=== PATIENT | male | born 1935 | race Caucasian/White ===

== ENCOUNTER → 2016-06-10 | Outpatient (CLI) | payer MEDICARE, OTHER ==
[~2016-06-10] VITALS: Ht 180.3 cm; Wt 74.8 kg
[~2016-06-10] MED LIST: ACET-2267 PO; ACET600C PO; ALLP100T PO; ALPR.25T PO; AMLO10TA82 PO; ASP81TEC PO; ASPI-808 PO; ATR20T PO; CHOL500049 PO; CIPR500T78 PO; CPR500T PO; CURCUMIN PO; DOCU-143 PO; DPAS20025 PO; HALO1TAB PO; HYDR1TAB8 OP; HYDR200T46 PO; HYOS0.1216 PO; IBUP-30 PO; L.AC1CAP6 PO; LEVO1CAP11 PO; MAGN400O7 PO; METHYLFOLATE PO; METR500T21 PO; NITR-65 PO; PHEN200T27 PO; POLY17PO6 PO; RT-ALBUINH IH; TERA5CAP10 PO; THIO200T PO; TIOT18CA IH; TOLT4CAP13 PO; VIT D3 PO; cefTRIAXone 1 GM/NS 50 ML IVPB IV ONE
--- OUTSIDE RECORDS SUMMARY | 2016-06-10 09:53 | XMS REPORT | Continuity of Care Document ---
Author Author [facility] Organization [facility] Address Unknown Phone Unavailable Care Team Providers Care Die Stamping Press Operator Name Role Phone Chriss Patricio PCP [phone] Source Comments Some departments are not documenting in the electronic medical record. If you do not see the information that you expected, contact Release of Information in the Health Information Management department at [phone] for further assistance in locating additional records.[facility] Active Allergies and Adverse Reactions No Known Allergies Current Medications Prescription Sig. Disp. Refills Start End Date Status Date donepezil (ARICEPT) 10 mg Take 10 mg by mouth at Active tablet bedtime daily. amLODIPine (NORVASC) 10 Take 10 mg by mouth Active mg tablet daily. allopurinol (ZYLOPRIM) Take 100 mg by mouth Active 100 mg tablet daily. Take with food. terazosin (HYTRIN) 5 mg Take 5 mg by mouth at Active capsule bedtime daily. tolterodine LA(+) (DETROL Take 4 mg by mouth daily. Active LA) 4 mg capsule aspirin 325 mg tablet Take 325 mg by mouth Active daily. Take with food. 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 Most Recent Encounters Date Type Specialty Providers Description 04/20/2016 Telephone Neurology Rah Reynaga MD General Question Social History Tobacco Use Types Packs/Day Years Used Date Former Smoker Cigarettes 40 Smokeless Tobacco: Never Used Alcohol Use Drinks/Week oz/Week Comments No Last Filed Vital Signs Vital Sign Reading Time Taken Blood Pressure 120/77 12/31/2015 9:24 AM CDT Pulse 69 12/31/2015 9:24 AM CDT Temperature - - Respiratory Rate - - Height 1.803 m (5' 11") 12/31/2015 9:24 AM CDT Weight 85.73 kg (189 lb) 12/31/2015 9:24 AM CDT Body Mass Index 26.37 12/31/2015 9:24 AM CDT Oxygen Saturation - - Plan of Care Date Type Specialty Providers Description 07/21/2016 Appointment Neurology Chuck Correa MD [address] [facility] [address] [place] [address] [phone] (Fax) Health Maintenance Due Date Last Done Comments Physical (Comprehensive) 09/26/1942 Exam Pertussis Vaccine 09/26/1947 Tetanus Vaccine 1952 Shingles Vaccine 1996 Prevnar/Pneumovax (#1) 2001 Influenza Vaccine 01/30/2016 Results from Last 3 Months Not on file
[2016-06-10 10:41] VITALS: BP_SYST 110; BP_SYST 128; BP_DIAS 60; BP_DIAS 68
[2016-06-10 10:42] LABS: MEAN PLATELET VOLUME 10.3 FL (7.4-10.4); RED BLOOD COUNT 4.34 10^6/uL (4.35-5.85); RED CELL DISTRIBUTION WIDTH 13.7 % (10.0-14.5); WHITE BLOOD COUNT 6.6 10^3/uL (4.3-11.0)
[2016-06-10 11:06] LABS: ALBUMIN 3.5 G/DL (3.2-4.5); BILIRUBIN,TOTAL 0.8 MG/DL (0.1-1.0); CREATININE SERUM 1.31 MG/DL (0.60-1.30); POTASSIUM 3.8 MMOL/L (3.6-5.0); TOTAL PROTEIN 6.4 G/DL (6.4-8.2)
--- NOTE | 2016-06-10 11:22 | Diagnostic Imaging Report ---
EXAMINATION: Portable upright radiograph of the chest. INDICATION: PICC line placement. FINDINGS: There is a right PICC line placed with the tip at the mid SVC level. The heart size is normal. No effusion or pneumothorax. The mediastinum and lilian appear unremarkable. IMPRESSION: There is a 20% left pneumothorax after lung biopsy. Post biopsy changes are seen in the mid left lung. The right lung is clear. The heart size is normal. No significant effusion. IMPRESSION: 20% left sided pneumothorax. This is comparable to the pneumothorax seen after biopsy. Will continue to monitor clinically and with followup chest x-ray. Dictated by: Dictated on workstation # [id number]
== END ==
LOC: SDC 09:48
PROVIDERS: ATTEND Nurse Practitioner Family
DX: A69.20 Lyme disease, unspecified (principal); Z45.2 Encounter for adjustment and management of vascular access device
CPT/HCPCS: 36415; 36569; 71010; 76937; 80053; 85027; 96365

== ENCOUNTER → 2016-06-16 | Outpatient (CLI) | payer MEDICARE, OTHER ==
[~2016-06-16] MED LIST changes: -cefTRIAXone 1 GM/NS 50 ML IVPB IV ONE
--- OUTSIDE RECORDS SUMMARY | 2016-06-16 13:12 | XMS REPORT | Continuity of Care Document ---
Author Author [facility] Organization [facility] Address Unknown Phone Unavailable Care Team Providers Care Business Analytics Manager Name Role Phone Chriss Patricio PCP [phone] Source Comments Some departments are not documenting in the electronic medical record. 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
[2016-06-16 13:14] LABS: BASOPHILS % (AUTO) 1 % (0-10); EOSINOPHILS # (AUTO) 0.2 10^3/uL (0.0-0.3); EOSINOPHILS % (AUTO) 3 % (0-10); LYMPHOCYTES # (AUTO) 0.9 X 10^3 (1.0-4.0); LYMPHOCYTES % (AUTO) 14 % (12-44); MEAN CORPUSCULAR HEMOGLOBIN 31 PG (25-34); MEAN CORPUSCULAR HGB CONC 34 G/DL (32-36); MEAN CORPUSCULAR VOLUME 90 FL (80-99); MEAN PLATELET VOLUME 10.8 FL (7.4-10.4); MONOCYTES # (AUTO) 0.4 X 10^3 (0.0-1.0); MONOCYTES % (AUTO) 7 % (0-12); NEUTROPHILS # (AUTO) 4.6 X 10^3 (1.8-7.8); NEUTROPHILS % (AUTO) 75 % (42-75); PLATELET COUNT 134 10^3/uL (130-400); RED BLOOD COUNT 4.35 10^6/uL (4.35-5.85); RED CELL DISTRIBUTION WIDTH 13.9 % (10.0-14.5); WHITE BLOOD COUNT 6.2 10^3/uL (4.3-11.0)
[2016-06-16 13:31] LABS: ALBUMIN 3.5 G/DL (3.2-4.5); BILIRUBIN,TOTAL 0.5 MG/DL (0.1-1.0); CALCIUM 8.8 MG/DL (8.5-10.1); CREATININE SERUM 1.28 MG/DL (0.60-1.30); POTASSIUM 3.9 MMOL/L (3.6-5.0)
== END ==
LOC: HH 13:09
PROVIDERS: ATTEND Internal Medicine
DX: G12.21 Amyotrophic lateral sclerosis (principal)
CPT/HCPCS: 80053; 85025

== ENCOUNTER → 2016-06-22 | Outpatient (CLI) | payer MEDICARE, OTHER ==
[2016-06-22 15:31] LABS: BASOPHILS % (AUTO) 1 % (0-10); EOSINOPHILS # (AUTO) 0.3 10^3/uL (0.0-0.3); EOSINOPHILS % (AUTO) 4 % (0-10); LYMPHOCYTES # (AUTO) 1.2 X 10^3 (1.0-4.0); LYMPHOCYTES % (AUTO) 17 % (12-44); MEAN CORPUSCULAR HEMOGLOBIN 31 PG (25-34); MEAN CORPUSCULAR HGB CONC 34 G/DL (32-36); MEAN CORPUSCULAR VOLUME 91 FL (80-99); MEAN PLATELET VOLUME 11.5 FL (7.4-10.4); MONOCYTES # (AUTO) 0.7 X 10^3 (0.0-1.0); MONOCYTES % (AUTO) 11 % (0-12); NEUTROPHILS # (AUTO) 4.6 X 10^3 (1.8-7.8); NEUTROPHILS % (AUTO) 68 % (42-75); PLATELET COUNT 161 10^3/uL (130-400); RED BLOOD COUNT 4.38 10^6/uL (4.35-5.85); RED CELL DISTRIBUTION WIDTH 13.8 % (10.0-14.5); WHITE BLOOD COUNT 6.8 10^3/uL (4.3-11.0)
[2016-06-22 15:48] LABS: ALBUMIN 3.5 G/DL (3.2-4.5); BILIRUBIN,TOTAL 0.4 MG/DL (0.1-1.0); CALCIUM 8.9 MG/DL (8.5-10.1); CREATININE SERUM 1.19 MG/DL (0.60-1.30); POTASSIUM 3.9 MMOL/L (3.6-5.0); TOTAL PROTEIN 6.1 G/DL (6.4-8.2)
--- OUTSIDE RECORDS SUMMARY | 2016-06-23 08:11 | XMS REPORT | Continuity of Care Document ---
Author Author [facility] Organization [facility] Address Unknown Phone Unavailable Care Team Providers Care Hot Air Furnace Installer Repairer Name Role Phone Chriss Patricio PCP [phone] Source Comments Some departments are not documenting in the electronic medical record. 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 [address] [place] [address] [phone] (Fax) Health Maintenance Due Date Last Done Comments Physical (Comprehensive) 09/26/1942 Exam Pertussis Vaccine 09/26/1947 Tetanus Vaccine 1953 Shingles Vaccine 1996 Prevnar/Pneumovax (#1) 2001 Influenza Vaccine 01/30/2016 Results from Last 3 Months Not on file
== END ==
LOC: HH 14:30
PROVIDERS: ATTEND Internal Medicine
DX: G12.21 Amyotrophic lateral sclerosis (principal); A69.20 Lyme disease, unspecified
CPT/HCPCS: 80053; 85025

== ENCOUNTER → 2016-06-23 | Outpatient (CLI) | payer MEDICARE, OTHER ==
--- OUTSIDE RECORDS SUMMARY | 2016-06-25 23:19 | XMS REPORT | Continuity of Care Document ---
Author Author [facility] Organization [facility] Address Unknown Phone Unavailable Care Team Providers Care Coremaker Supervisor Name Role Phone Chriss Patricio PCP [phone] Source Comments Some departments are not documenting in the electronic medical record. 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
[2016-06-26 00:22] LABS: BILIRUBIN,URINE NEGATIVE (NEGATIVE); KETONES,URINE NEGATIVE (NEGATIVE); LEUKOCYTE ESTERASE ,URINE NEGATIVE (NEGATIVE); NITRITE,URINE NEGATIVE (NEGATIVE); PH,URINE 6.5 (5-9); PROTEIN,URINE NEGATIVE (NEGATIVE); UROBILINOGEN,URINE NORMAL (NORMAL)
[2016-06-26 00:23] LABS: SQUAMOUS EPITHELIAL CELL,UR RARE /HPF
== END ==
LOC: HH 04:00
PROVIDERS: ATTEND Internal Medicine
DX: G12.21 Amyotrophic lateral sclerosis (principal); A69.20 Lyme disease, unspecified
CPT/HCPCS: 81000

== ENCOUNTER → 2016-06-29 | Outpatient (CLI) | payer MEDICARE, OTHER ==
--- OUTSIDE RECORDS SUMMARY | 2016-06-29 15:27 | XMS REPORT | Continuity of Care Document ---
Author Author [facility] Organization [facility] Address Unknown Phone Unavailable Care Team Providers Care Clarifier Operator Helper Name Role Phone Chriss Patricio PCP [phone] Source Comments Some departments are not documenting in the electronic medical record. 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
[2016-06-29 15:43] LABS: BASOPHILS % (AUTO) 1 % (0-10); EOSINOPHILS # (AUTO) 0.3 10^3/uL (0.0-0.3); EOSINOPHILS % (AUTO) 4 % (0-10); LYMPHOCYTES % (AUTO) 16 % (12-44); MEAN CORPUSCULAR HEMOGLOBIN 31 PG (25-34); MEAN CORPUSCULAR HGB CONC 34 G/DL (32-36); MEAN CORPUSCULAR VOLUME 91 FL (80-99); MEAN PLATELET VOLUME 11.5 FL (7.4-10.4); MONOCYTES # (AUTO) 0.4 X 10^3 (0.0-1.0); MONOCYTES % (AUTO) 6 % (0-12); NEUTROPHILS # (AUTO) 4.3 X 10^3 (1.8-7.8); NEUTROPHILS % (AUTO) 73 % (42-75); PLATELET COUNT 155 10^3/uL (130-400); RED BLOOD COUNT 4.28 10^6/uL (4.35-5.85); RED CELL DISTRIBUTION WIDTH 14.1 % (10.0-14.5); WHITE BLOOD COUNT 5.9 10^3/uL (4.3-11.0)
[2016-06-29 16:10] LABS: ALBUMIN 3.6 G/DL (3.2-4.5); BILIRUBIN,TOTAL 0.4 MG/DL (0.1-1.0); CALCIUM 8.8 MG/DL (8.5-10.1); CREATININE SERUM 1.24 MG/DL (0.60-1.30); POTASSIUM 3.7 MMOL/L (3.6-5.0); TOTAL PROTEIN 6.2 G/DL (6.4-8.2)
== END ==
LOC: LABNPT 13:30
PROVIDERS: ATTEND Internal Medicine
DX: G12.21 Amyotrophic lateral sclerosis (principal); A69.20 Lyme disease, unspecified
CPT/HCPCS: 80053; 85025

== ENCOUNTER → 2016-07-06 | Outpatient (CLI) | payer MEDICARE, OTHER ==
--- OUTSIDE RECORDS SUMMARY | 2016-07-06 14:06 | XMS REPORT | Continuity of Care Document ---
Author Author [facility] Organization [facility] Address Unknown Phone Unavailable Care Team Providers Care Switchboard Operator Helper Name Role Phone Chriss Patricio PCP [phone] Source Comments Some departments are not documenting in the electronic medical record. 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
[2016-07-06 14:08] LABS: BASOPHILS % (AUTO) 1 % (0-10); EOSINOPHILS # (AUTO) 0.2 10^3/uL (0.0-0.3); EOSINOPHILS % (AUTO) 4 % (0-10); LYMPHOCYTES % (AUTO) 16 % (12-44); MEAN CORPUSCULAR HEMOGLOBIN 31 PG (25-34); MEAN CORPUSCULAR HGB CONC 34 G/DL (32-36); MEAN CORPUSCULAR VOLUME 90 FL (80-99); MEAN PLATELET VOLUME 11.1 FL (7.4-10.4); MONOCYTES # (AUTO) 0.5 X 10^3 (0.0-1.0); MONOCYTES % (AUTO) 8 % (0-12); NEUTROPHILS # (AUTO) 4.2 X 10^3 (1.8-7.8); NEUTROPHILS % (AUTO) 71 % (42-75); PLATELET COUNT 162 10^3/uL (130-400); RED BLOOD COUNT 4.29 10^6/uL (4.35-5.85); RED CELL DISTRIBUTION WIDTH 14.2 % (10.0-14.5)
[2016-07-06 14:28] LABS: ALBUMIN 3.6 G/DL (3.2-4.5); BILIRUBIN,TOTAL 0.5 MG/DL (0.1-1.0); CALCIUM 8.9 MG/DL (8.5-10.1); CREATININE SERUM 1.19 MG/DL (0.60-1.30); POTASSIUM 4.2 MMOL/L (3.6-5.0); TOTAL PROTEIN 6.5 G/DL (6.4-8.2)
== END ==
LOC: HH 14:02
PROVIDERS: ATTEND Internal Medicine
DX: G12.21 Amyotrophic lateral sclerosis (principal); A69.20 Lyme disease, unspecified
CPT/HCPCS: 80053; 81000; 85025

== ENCOUNTER → 2016-07-06 | Outpatient (CLI) | payer MEDICARE, OTHER ==
--- OUTSIDE RECORDS SUMMARY | 2016-07-07 11:44 | XMS REPORT | Continuity of Care Document ---
Author Author [facility] Organization [facility] Address Unknown Phone Unavailable Care Team Providers Care Tractor Driver Name Role Phone Chriss Patricio PCP [phone] Source Comments Some departments are not documenting in the electronic medical record. 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
--- OUTSIDE RECORDS SUMMARY | 2016-07-07 11:46 | XMS REPORT | Continuity of Care Document ---
Author Author [facility] Organization [facility] Address Unknown Phone Unavailable Care Team Providers Care Land Measurer Name Role Phone Chriss Patricio PCP [phone] Source Comments Some departments are not documenting in the electronic medical record. 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
[2016-07-07 11:47] LABS: BILIRUBIN,URINE NEGATIVE (NEGATIVE); KETONES,URINE NEGATIVE (NEGATIVE); LEUKOCYTE ESTERASE ,URINE 1+ (NEGATIVE); NITRITE,URINE NEGATIVE (NEGATIVE); PH,URINE 5 (5-9); PROTEIN,URINE 1+ (NEGATIVE); UROBILINOGEN,URINE NORMAL (NORMAL)
[2016-07-07 11:55] LABS: WBC,URINE RARE /HPF
== END ==
LOC: HH 10:00
PROVIDERS: ATTEND Internal Medicine
DX: G12.21 Amyotrophic lateral sclerosis (principal)
CPT/HCPCS: 81000

== ENCOUNTER 2016-08-14 10:16 | Observation (INO) | payer MEDICARE, OTHER ==
[~2016-08-14] VITALS: Ht 180.3 cm; Wt 71.9 kg
[~2016-08-14 10:16] MED LIST changes: -ACET-2267 PO; -ACET600C PO; -ASPI-808 PO; -CHOL500049 PO; -CURCUMIN PO; -DOCU-143 PO; -HALO1TAB PO; -HYDR200T46 PO; -IBUP-30 PO; -L.AC1CAP6 PO; -LEVO1CAP11 PO; -MAGN400O7 PO; -METHYLFOLATE PO; -METR500T21 PO; -POLY17PO6 PO; -THIO200T PO; -TOLT4CAP13 PO; -VIT D3 PO
--- OUTSIDE RECORDS SUMMARY | 2016-08-14 10:23 | XMS REPORT | Continuity of Care Document ---
Author Author [facility] Organization [facility] Address Unknown Phone Unavailable Care Team Providers Care Applied Researcher Name Role Phone Chriss Patricio PCP [phone] Source Comments Some departments are not documenting in the electronic medical record. If you do not see the information that you expected, contact Release of Information in the Health Information Management department at [phone] for further assistance in locating additional records.[facility] Active Allergies and Adverse Reactions No Known Allergies Current Medications Prescription Sig. Disp. Refills Start End Date Status Date amLODIPine (NORVASC) 10 Take 10 mg by [...] by mouth Active daily. Take with food. doxycycline (VIBRAMYCIN) Take 100 mg by mouth Active 100 mg tablet twice daily. hydroxychloroquine Take 200 mg by mouth Active (PLAQUENIL) 200 mg tablet daily. Take with food. metroNIDAZOLE (FLAGYL) Take 500 mg by mouth Active 500 mg tablet three times daily. Take with food. Do not drink alcohol while on metronidazole. Calcium Carbonate-Vitamin Take by mouth every 7 Active D3 (VITAMIN D-3) days. 180-5,000 mg-unit tab MECOBALAMIN/L-MEFOLATE/B6 Take by mouth twice Active PHOS (METANX PO) daily. other medication methyfolate Active 5000mgcureumin 95 - 500mg daily ALPHA LIPOIC ACID PO Take 250 mg by mouth Active daily. M-Gyfearnzotid-I36-Acetyl Take by mouth daily. Active cyst 600-2-6 mg tab donepezil (ARICEPT) 10 mg Take 10 mg by mouth at 07/21/19 Discontin tablet bedtime daily. 17 ued Active Problems Problem Noted Date Falls frequently 07/25/2016 Last Assessment & Plan: I recommended fall precautions and Physical Therapy. Parkinsonism (HCC) 07/21/2016 Overview: Symptoms began in 2013, initial symptoms was balance difficulty. Atypical PD Features: Early Falls, Rapid Progression, Tremor Absent, Symmetrical Onset and early cognitive problems 07/25/2016 Total Mentation Score: 8 Total Activities of Daily Living Score: 23 Total Motor Exam: 49 Total UPDRS Score: 80 PDQ Total Percent: 54.49 % L ast Assessment & Plan: Patient is a 80 y.o. year old male who presents with history of gait and balance difficulty and on examination has bradykinesia and rigidity who has not tried Sinemet. My assessment is that the patient most likely has parkinsonism with Lewy Body Dementia. I would recommend initiating Sinemet (carbidopa/levodopa) 25/100 and gradually increasing it to 3 tab three times a day. Depression 07/21/2016 Overview: 07/25/2016 Geriatric Depression Scale: 21 L ast Assessment & Plan: Patient has depression as evidenced by the Geriatric Depression Scale. We discussed the treatment options including referral to a psychologist or social media marketing specialist for counseling and initiating treatment with an anti depressant. Lewy body dementia 07/21/2016 Overview: 07/25/2016 MOCA Score (out of 30): 13 L ast Assessment & Plan: Patient has cognitive problems as evidenced by the MOCA scores. This is most likely secondary to underlying Lewy Body Dementia and depression. Since he has not had any workup I would recommend chemistry profile, serum B12, homocysteine and methylmalonic acid levels. I would also recommend treatment options such as using cholinesterase inhibitors like Aricept and Exelon. 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 Most Recent Encounters Date Type Specialty Providers Description 07/21/2016 Office Visit Neurology Chuck Correa MD Primary Parkinsonism (HCC) (Primary Dx); Other depression; Lewy body dementia without behavioral disturbance; Falls frequently Social History Tobacco Use Types Packs/Day Years Used Date Former Smoker Cigarettes 40 Smokeless Tobacco: Never Used Alcohol Use Drinks/Week oz/Week Comments No Last Filed Vital Signs Vital Sign Reading Time Taken Blood Pressure 111/65 07/21/2016 12:34 PM BEEF SPECIALIST Pulse 72 07/21/2016 12:34 PM BEEF SPECIALIST Temperature - - Respiratory Rate - - Height 1.66 m (5' 5.35") 07/21/2016 12:34 PM BEEF SPECIALIST Weight 75 kg (165 lb 5.5 oz) 07/21/2016 12:34 PM BEEF SPECIALIST Body Mass Index 27.22 07/21/2016 12:34 PM BEEF SPECIALIST Oxygen Saturation - - Plan of Care Health Maintenance Due Date Last Done Comments Physical (Comprehensive) 09/26/1942 Exam Pertussis Vaccine 09/26/1947 Tetanus Vaccine 1953 Shingles Vaccine 1996 Prevnar/Pneumovax (#1) 2001 Influenza Vaccine 01/29/2017 Results from Last 3 Months Not on file
[2016-08-14] MEDS ORDERED: LEVO1CAP11 PO (10:51)
[2016-08-14] MEDS ORDERED: ASPI-808 PO (10:51)
[2016-08-14] MEDS ORDERED: VIT D3 PO (10:51)
[2016-08-14] MEDS ORDERED: HYDR200T46 PO (10:51)
[2016-08-14 11:25] LABS: MEAN PLATELET VOLUME 10.5 FL (7.4-10.4); RED BLOOD COUNT 4.68 10^6/uL (4.35-5.85); RED CELL DISTRIBUTION WIDTH 14.6 % (10.0-14.5); WHITE BLOOD COUNT 7.6 10^3/uL (4.3-11.0)
[2016-08-14 11:29] LABS: BILIRUBIN,URINE NEGATIVE (NEGATIVE); KETONES,URINE 1+ (NEGATIVE); LEUKOCYTE ESTERASE ,URINE 1+ (NEGATIVE); NITRITE,URINE POSITIVE (NEGATIVE); PH,URINE 6 (5-9); PROTEIN,URINE 1+ (NEGATIVE); UROBILINOGEN,URINE NORMAL (NORMAL)
[2016-08-14 11:37] LABS: SQUAMOUS EPITHELIAL CELL,UR RARE /HPF; WBC,URINE 0-2 /HPF
[2016-08-14 11:38] LABS: ALBUMIN 3.5 G/DL (3.2-4.5); BILIRUBIN,TOTAL 0.6 MG/DL (0.1-1.0); CALCIUM 9.1 MG/DL (8.5-10.1); CREATININE SERUM 1.23 MG/DL (0.60-1.30); POTASSIUM 4.2 MMOL/L (3.6-5.0); TOTAL PROTEIN 6.4 G/DL (6.4-8.2)
--- NOTE | 2016-08-14 11:53 | Diagnostic Imaging Report ---
Portable upright radiograph of the chest. INDICATION: Fall. FINDINGS: There is minimal left basilar atelectasis. The right lung is clear. The heart size is normal. No effusion or pneumothorax. Mediastinum and lilian appear unremarkable. IMPRESSION: Minimal left basilar opacity likely related to atelectasis. Dictated by: Dictated on workstation # [id number]
--- NOTE | 2016-08-14 12:42 | ED General ---
General Chief Complaint: General Problems/Pain Stated Complaint: MULTIPLE COMPLAINTS Nursing Triage Note: PT CO OF EXTREME WEAKNESS, PT IS UNABLE TO BEAR WT D/T WEAKNESS, HAS R HIP AND KNEE PAIN, STATES HAS DX OF ALS, TICK DISEASES. PT ALSO HAVING DIFFICULTY SWALLOWING AT TIMES WORSE PAST WEEK. STATES HAS NOT HAD BM FOR A WEEK Nursing Sepsis Screen: No Definite Risk Source of Information: Family Exam Limitations: No Limitations History of Present Illness Time Seen by Provider: 12:09 Timing/Duration: 1 Week Associated Systoms: Loss of Appetite Weakness Allergies and Home Medications Allergies Coded Allergies: No Known Drug Allergies (Unverified , 07/21/10) Home Medications 50,000 UNIT PO WEEK (Reported) Albuterol Sulfate 1 Puff Puff 1 PUFF IH TID (Reported) Allopurinol 100 Mg Tab 100 MG PO DAILY (Reported) Amlodipine Besylate 10 Mg Tablet 10 MG PO DAILY (Reported) Aspirin 325 Mg Tablet 325 MG PO DAILY (Reported) Hydroxychloroquine Sulfate 200 Mg Tablet 200 MG PO DAILY (Reported) Levomefolate/B6/B12/Algal Oil 1 Each Capsule 1 EACH PO BID (Reported) Terazosin Hcl 5 Mg Capsule 5 MG PO DAILY (Reported) Tiotropium Hubbell 1 Inh Aerp 1 PUFF IH DAILY (Reported) 1 INHALATION Constitutional: see HPI malaise weakness EENTM: no symptoms reported Respiratory: other (SLEEP APNEA) Gastrointestinal: no symptoms reported Genitourinary: no symptoms reported Musculoskeletal: muscle weakness other (today unable to stand) Skin: no symptoms reported Psychiatric/Neurological: Emotional Problems (frequent tears for no reason) Numbness Weakness Hematologic/Lymphatic: No Symptoms Reported Immunological/Allergic: no symptoms reported Past Aubrwrg-Kqzeqw-Kygeud Hx Patient Social History Alcohol Use: Denies Use Recreational Drug Use: No Smoking Status: Never a Smoker Recent Foreign Travel: No Contact w/Someone Who Travel: No Recent Infectious Disease Expo: No Immunizations Up To Date Date of Pneumonia Vaccine: May 31, 2011 Date of Influenza Vaccine: Feb 28, 2011 Surgeries HX Surgeries: Yes (EYE SX X6 TOTAL, STONE BASKET, CYSTO, TURBT) Respiratory Hx Respiratory Disorders: No Cardiovascular Hx Cardiac Disorders: Yes Neurological Hx Neurological Disorders: Yes Genitourinary Hx Genitourinary Disorders: Yes (BLADDER CA) Gastrointestinal Hx Gastrointestinal Disorders: No Musculoskeletal Hx Musculoskeletal Disorders: Yes (ARTHRITIS) Endocrine Hx Endocrine Disorders: No HEENT HX ENT Disorders: No Psychosocial Hx Psychiatric Problems: No Blood Transfusions Hx Blood Disorders: No Physical Exam Vital Signs Vital Sign - Last 12Hours 08/14/16 10:20 Temp 98.2 Pulse 73 Resp 18 B/P 151/75 Pulse Ox 96 Capillary Refill : Less Than 3 Seconds General Appearance: Other (somnolent) Eyes: Bilateral Eye Normal Inspection HEENT: Normal ENT Inspection Neck: Normal Inspection Respiratory: Chest Non Tender Lungs Clear Normal Breath Sounds No Accessory Muscle Use No Respiratory Distress Cardiovascular: Regular Rate, Rhythm No Edema No Gallop No JVD No Murmur Normal Peripheral Pulses Gastrointestinal: Normal Bowel Sounds No Organomegaly No Pulsatile Mass Non Tender Soft Back: Normal Inspection No CVA Tenderness No Vertebral Tenderness Extremity: Normal Capillary Refill Normal Inspection Normal Range of Motion Non Tender No Calf Tenderness No Pedal Edema Neurologic/Psychiatric: Alert Oriented x3 No Motor/Sensory Deficits Normal Mood/Affect Skin: Normal Color Warm/Dry Lymphatic: No Adenopathy Focused Exam Lactic Acid Level Laboratory Tests Test 08/14/16 11:00 Alanine Aminotransferase (ALT/SGPT) 23U/L (0-55) Albumin 3.5G/DL (3.2-4.5) Alkaline Phosphatase 42U/L (40-136) Anion Gap 10MMOL/L (5-14) Aspartate Amino Transf (AST/SGOT) 27U/L (5-34) BUN/Creatinine Ratio 16 Blood Urea Nitrogen 20MG/DL (7-18) H Calcium Level 9.1MG/DL (8.5-10.1) Carbon Dioxide Level 23MMOL/L (21-32) Chloride Level 108MMOL/L (98-107) H Creatinine 1.23MG/DL (0.60-1.30) Estimat Glomerular Filtration Rate 57 Glucose Level 107MG/DL (70-105) H Potassium Level 4.2MMOL/L (3.6-5.0) Sodium Level 141MMOL/L (135-145) Total Bilirubin 0.6MG/DL (0.1-1.0) Total Protein 6.4G/DL (6.4-8.2) Progress/Results/Core Measures Results/Orders Lab Results Laboratory Tests Test 08/14/16 11:00 Range/Units Alanine Aminotransferase (ALT/SGPT) 23 0-55 U/L Albumin 3.5 3.2-4.5 G/DL Alkaline Phosphatase 42 40-136 U/L Anion Gap 10 5-14 MMOL/L Aspartate Amino Transf (AST/SGOT) 27 5-34 U/L BUN/Creatinine Ratio 16 Blood Urea Nitrogen 20 H 7-18 MG/DL Calcium Level 9.1 8.5-10.1 MG/DL Carbon Dioxide Level 23 21-32 MMOL/L Chloride Level 108 H 98-107 MMOL/L Creatinine 1.23 0.60-1.30 MG/DL Estimat Glomerular Filtration Rate 57 Glucose Level 107 H 70-105 MG/DL Hematocrit 42 40-54 % Hemoglobin 14.6 13.3-17.7 G/DL Mean Corpuscular Hemoglobin 31 25-34 PG Mean Corpuscular Hemoglobin Concent 35 32-36 G/DL Mean Corpuscular Volume 90 80-99 FL Mean Platelet Volume 10.5 H 7.4-10.4 FL Platelet Count 184 130-400 10^3/uL Potassium Level 4.2 3.6-5.0 MMOL/L Red Blood Count 4.68 4.35-5.85 10^6/uL Red Cell Distribution Width 14.6 H 10.0-14.5 % Sodium Level 141 135-145 MMOL/L Total Bilirubin 0.6 0.1-1.0 MG/DL Total Protein 6.4 6.4-8.2 G/DL Urine Bacteria TRACE /HPF Urine Bilirubin NEGATIVE NEGATIVE Urine Casts NONE /LPF Urine Clarity CLEAR Urine Color YELLOW Urine Crystals NONE /LPF Urine Culture Indicated YES Urine Glucose (UA) NEGATIVE NEGATIVE Urine Ketones 1+ H NEGATIVE Urine Leukocyte Esterase 1+ H NEGATIVE Urine Mucus NEGATIVE /LPF Urine Nitrite POSITIVE H NEGATIVE Urine Protein 1+ H NEGATIVE Urine RBC 0-2 /HPF Urine RBC (Auto) 1+ H NEGATIVE Urine Specific [place] 1.020 1.016-1.022 Urine Squamous Epithelial Cells RARE /HPF Urine Urobilinogen NORMAL NORMAL MG/DL Urine WBC 0-2 /HPF Urine pH 6 5-9 White Blood Count 7.6 4.3-11.0 10^3/uL My Orders Orders-DELILAH MARIE MD Cbc No Diff (08/14/16 11:18) Comprehensive Metabolic Panel (08/14/16 11:18) Ua Culture If Indicated (08/14/16 11:18) Chest 1 View, Ap/Pa Only (08/14/16 11:22) Urine Culture (08/14/16 11:00) Vital Signs/I&O Vital Sign - Last 12Hours 08/14/16 10:20 Temp 98.2 Pulse 73 Resp 18 B/P 151/75 Pulse Ox 96 Blood Pressure Mean: 100 Departure Impression Impression: Primary Impression: ALS in rapid decline Additional Impression: dehydration/possible UTI Disposition: 01 HOME, SELF-CARE Condition: Stable/Unchanged Decision to Admit Reason: Admit from ER (General) Decision to Admit/Date: Aug 14, 2016 Time/Decision to Admit Time: 12:49 Departure-Patient Inst. Referrals: JOSÉ HURLEY MD (PCP/Family) Primary Care Physician DELILAH MARIE MD Aug 14, 2016 12:42
[2016-08-14] MEDS ORDERED: NS IV 1000 ML 1,000 ML ONE (13:04)
[2016-08-14] MEDS ORDERED: cefTRIAXone 1 GM (ROCEPHIN) VIAL ONE (13:04)
[2016-08-14] MEDS ORDERED: cefTRIAXone INJECTION 1,000 MG in NS (IVPB) 50 ML IV ONE (13:15)
[2016-08-14 14:35] VITALS: BP 142/74
[2016-08-14 14:52] VITALS: BP 142/70
[2016-08-14] MEDS ORDERED: CATHETER FLUSH 10 ML SYR IV PRN (15:15)
[2016-08-14 15:30] VITALS: BP 156/77
--- NOTE | 2016-08-14 15:39 | ST Dysphagia Evaluation ---
Speech Evaluation-General Medical Diagnosis Debility Onset Date: Aug 14, 2016 Therapy Diagnosis Therapy Diagnosis: Mild Oropharyngeal Dysphagia Precautions Precautions: Aspiration Precautions/Isolations: Contact Isolation Referral Referring Physician: Dr. Nilda Meade Reason for Referral: Evaluation/Treatment Clinical Bedside Swallowing Evaluation Medical History Pertinent Medical History: Arthritis Possible diagnosis of ALS, bladder cancer Reviewed History: Yes Speech PLF/Current-Dysphagia Prior Level of Function The patient's stated the patient demonstrated difficulty swallowing medication (pills) this morning (08/14/16). The patient denied any challenges with swallowing and reported he consumes a regular diet with thin liquids. Subjective The patient was recently admitted to [facility] with a diagnosis of debility. The patient greeted the clinician appropriately and agreed to participate in the dysphagia evaluation. To note, the patient appeared fatigued , requiring intermittent verbal prompts for appropriate alertness levels. CXR: 08/14/16: Left basilar opacity. Cognitive Status Patient Orientation: Person The patient stated he was at [facility]. Oral Motor Skills Dentition: Natural Ability to Follow Directions: Fair The patient is NPO pending results of swallow evaluation. Oral Expression Ability: Mild Impairment Voice Voice Phonatory-Based Quality: Breathy, Weak Voice Pitch: Normal Voice Loudness: Moderately Soft/Quiet Face Facial Symmetry: Symmetrical Oral-Facial Assessment Oral-Facial Dentition: Normal Labial Seal Description: Weak (Bilaterally.) Smile: Normal Puff Cheeks: Reduced Strength Lingual Protrusion: Abnormal (Mild lingual fasciculations present. Observed candidiasis on posterior lingual surface.) Lingual ROM: Normal Lingual Strength: Abnormal (Weak, bilaterally.) Pharynx Velopharyngeal Move.: Normal Volitional Dry Swallow: Yes Voluntary Cough: Yes Dysphagia Evaluation Consistencies Presented: Regular, Thin Liquid, Pureed 1. Increased mastication time was noted with solid consistencies tested. Pharyngeal Phase: Reduced Laryngeal Elevation Funct. Velo/Pharyngeal Symptom: Cough After Swallow - Thin Liquid: - Teaspoon and Cup Sip: No signs/symptoms of aspiration were demonstrated with multiple teaspoon or cup sips of thin liquid. The patient's vocal quality remained clear. - Straw: An immediate cough was demonstrated following two of two straw drinks of thin liquid. -Puree: No signs/symptoms of aspiration were demonstrated with puree bolus trials. - Solid: No signs/symptoms of aspiration were demonstrated with solid bolus trials. Dietary Recommendations: Regular Liquid Recommendations: Thin Swallowing Precautions: Decreased Bolus 1/2 Tsp, Liquids from Cup, No Straw, Oral Supervision Staff, Oral Supervision Caregiver, Small Bites and Sips, Sitting 90 Degrees 30 Post Intake 1. Crush medication and place in puree for administration. Dysphagia Evaluation Summary The patient demonstrated mild oropharyngeal dysphagia characterized by reduced lingual strength and decreased laryngeal elevation. Speech Short Term Goals Short Term Goals Short Term Goals 1. The patient will demonstrate dysphagia strategies with 90% accuracy and mild clinician verbal cueing. Time Frame-STG: Five Days Speech Fdc Goals Conductor And Engineer Goals 1. The patient will tolerate the least restrictive diet without signs/symptoms of aspiration or laryngeal penetration. Time Frame: One Week Speech-Plan Treatment Plan Speech Therapy Treatment Plan: Continue Plan of Care Continue skilled speech therapy to target the least restrictive diet without signs/symptoms of aspiration. Treatment Duration: Aug 28, 2016 # of days/week One to Three Visits Per Week: One to Three Minutes/Day (M-F): 20 Rehab Potential: Guarded Safety Risks/Education Teaching Recipient: Patient, Significant Other Teaching Methods: Discussion Response to Teaching: Verbalize Understanding Education Topics Provided: Results, Recommendations, Strategies, Signs/Symptoms of Aspiration Time Speech Therapy Time In: 15:15 Speech Therapy Time Out: 15:35 Total Billed Time: 20 Billed Treatment Time 1, KAMARI LEES Aug 14, 2016 15:39
--- NOTE | 2016-08-14 15:56 | Physical Therapy Evaluation ---
PT Evaluation-General Medical Diagnosis Admission Date Aug 14, 2016 at 14:02 Medical Diagnosis: ALS/dehydration/UIT Onset Date: Aug 14, 2016 Therapy Diagnosis Therapy Diagnosis: severe debility and weakness Height/Weight Height (Feet): 5 Height (Inches): 11.00 Weight (Pounds): 158 Weight (Ounces): 7.0 Precautions Precautions/Isolations: Contact Isolation, Fall Prevention, Standard Precautions Referral Physician: Halina Reason for Referral: Evaluation/Treatment Medical History Pertinent Medical History: Arthritis Additional Medical History bladder CA; tick diseases (per spouse) Current History 9 day increase in weakness and debility per spouse report Reviewed History: Yes Social History Home: Single Level Current Living Status: Spouse Entry Into Home: Ramp Prior/Core FIM Prior Level of Function Functional [place] Measure 0=Not Assessed/NA 4=Minimal Assistance 1=Total Assistance 5=Supervision or Setup 2=Maximal Assistance 6=Modified [place] 3=Moderate Assistance 7=Complete [place] Bed Mobility: 5 Transfers (B,C,W/C) (FIM): 5 Gait: 5 Wheelchair Mobility: 2 has FWW and w/c at home PT Evaluation-Current Subjective Patient agrees to PT. Pain Numeric Pain Scale: 5-Moderate Pain Location: Right, Lateral Location Body Site: Thigh Pain Description: Sharp Comment: with abduction Pt/Family Goals improve current LOF Objective Patient Orientation: Normal For Age Problem Solving: Fair ROM/Strength ROM Lower Extremities bilateral LE WFL Strenght Lower Extremities right knee flexion 2-/5/extension 2/5; hip flexion 1/5; ankle dorsi/ plantarflexion 2-/5 left knee flexion 2/5/extension 2+/5; hip flexion 1/5; ankle dorsi/ plantarflexion 2/5 Integumentary/Posture Integumentary refer to nursing notes Bowel Incontinence: No Bladder Incontinence: No Posture slight right lean in supine Neuromuscular (Tone, Coordination, Reflexes) severely diminished coordination due to weakness and diagnosis of ALS Sensory Vision: Wears Glasses Hearing: Functional Sensation Right Lower Extremit: Intact Sensation Left Lower Extremity: Intact Transfers Functional [place] Measure 0=Not Assessed/NA 4=Minimal Assistance 1=Total Assistance 5=Supervision or Setup 2=Maximal Assistance 6=Modified [place] 3=Moderate Assistance 7=Complete [place] Transfers (B, C, W/C) (FIM): 1 Scootin Rollin Supine to/from Sit: 1 Sit to/from Stand: 0 bed t/f WC(FIM only if WC use): 0 Patient is dependent assist x 2 for all bed mobility and to sit and maintain sitting EOB. Patient has increase c/o right LE pain with movement to right Gait Mode of Locomotion: Both Anticipated Mode of Locomotion: Both Balance Sitting Static: Poor Sitting Dynamic: Poor Treatment CoTreat with OT secondary to severe weakness of total body of patient. PT address sitting balance while OT tested upper body strength and ROM; OT addressed sitting balance while PT tested lower body ROM and strength. Assessment/Needs 80 y.o. male, will benefit from skilled PT to address functional strength and mobility to improve current LOF and to safely return to home or care facility at maximum LOF. Rehab Potential: Guarded Post Rehab Potential-Barriers: ALS PT Fci Goals Fci Goals PT Hydrometeorologist Goals Time Frame: Sep 04, 2016 Transfers (B,C,W/C) (FIM): 4 Gait (FIM): 1 Gait distance (FIM): 1=up to 49 ft Distance: 25' Gait Level of Assist: 3 Gait Assistive Device: FWW PT Plan Problem List Problem List: Activity Tolerance, Functional Strength, Balance, Transfer, Bed Mobility Treatment/Plan Treatment Plan: Continue Plan of Care Treatment Plan: Bed Mobility, Education, Functional Activity Ghassan, Functional Strength, Gait, Safety, Therapeutic Exercise, Transfers Treatment Duration: Sep 04, 2016 # of days/week 5-6 Visits Per Week: 5-6 Pt/Family Agrees w/Plan: Yes Safety Risks/Education Patient Education: Safety Issues Teaching Recipient: Patient, Significant Other Teaching Methods: Discussion Response to Teaching: Verbalize Understanding Discharge Recommendations Therapy D/C Recommendations: Longterm (TCU/NH) Time/GCodes Time In: 1530 Time Out: 1540 Total Billed Treatment Time: 10 Total Billed Treatment 1 visit EVHigh 10 min CHA SANDOVAL PT Aug 14, 2016 15:56
--- NOTE | 2016-08-14 15:57 | Occupational Therapy Eval ---
OT Evaluation-General/PLF Medical Diagnosis Admission Date Aug 14, 2016 at 14:02 Medical Diagnosis: ALS/dehydration/UTI Onset Date: Aug 14, 2016 Therapy Diagnosis Therapy Diagnosis: decreased strength; impaired self care skills Height/Weight Height (Feet): 5 Height (Inches): 11.00 Weight (Pounds): 158 Weight (Ounces): 7.0 Precautions Precautions/Isolations: Contact Isolation Medical History Pertinent Medical History: Arthritis Additional Medical History ALS, bladder cancer Reviewed History: Yes Social History Home: Single Level Current Living Status: Spouse Entry Into Home: Ramp ADL-Prior Level of Function ADL PLOF Comments Pt states he is normally able to complete feeding, grooming, and UE dressing tasks. Spouse assists with bathing and LE ADLs. Has FWW, but has been unable to ambulate for last 9 days secondary to weakness per spouse. DME/Equipment: Shower OT Current Status Subjective Pt in bed, agrees to treatment. Pt reports pain in right LE with movement. Mental Status/Objective Patient Orientation: Person Current Glasses/Contacts: Yes Upper Extremity ROM Shoulder ROM to 90 degrees. Remainder grossly functional Upper Extremity Coordination Impaired Upper Extremity Strength Pt has impaired strength bilateral UE ADL-Treatment ADL-Current Pt requires total assist x2 for supine <-> sit and to maintain sitting EOB. Pt rolls left and right with total assistance. Scoots to HOB with total assist. Pt very fatigued with activity. Pt in bed with needs met and spouse present after session. Functional [place] Measure 0=Not Assessed/NA 4=Minimal Assistance 1=Total Assistance 5=Supervision or Setup 2=Maximal Assistance 6=Modified [place] 3=Moderate Assistance 7=Complete IndependenceIRFPAI Quality Coding Scale 6 Independent with activity with or without an assistive device 5 Patient requires set up or clean up by helper. Patient completes activity by themselves 4 Supervision or touching assist (CGA). [place] provide cues , steadying assist 3 The helper provides less than half the effort to complete the activity 2 The helper provides more than half the effort to complete the activity 1 Dependent. The helper does all the effort to complete an activity 7 Patient refused to complete or attempt activity 9 The patient did not perform the activity before the current illness or injury 88 Not attempted due to Medical conditions or safety concerns Other Treatments Co-treat with PT secondary to impaired activity tolerance, level of skilled assist required, and pt weakness. OT focusing on UE assessment and balance with PT focusing on LE assessment and balance. Education OT Patient Education: Rehab process Teaching Recipient: Patient, Family OT Short Term Goals Short Term Goals 1=Demonstrate adherence to instructed precautions during ADL tasks. 2=Patient will verbalize/demonstrate understanding of assistive devices/ modifications for ADL. 3=Patient will improve strength/tolerance for activity to enable patient to perform ADL's. OT Wash House Supervisor Goals Wash House Supervisor Goals Time Frame: Sep 04, 2016 Eating (FIM): 5 Grooming(FIM): 5 Bathing(FIM): 3 Upper Body Dressing(FIM): 4 Lower Body Dressing(FIM): 3 Toilet/Commode Transfer(FIM): 3 Additional Goals: 1-Demonstrate ADL Tasks, 2-Verbalize Understanding, 3- ImproveStrength/Ghassan 1=Demonstrate adherence to instructed precautions during ADL tasks. 2=Patient will verbalize/demonstrate understanding of assistive devices/ modifications for ADL. 3=Patient will improve strength/tolerance for activity to enable patient to perform ADL's. OT Education/Plan Problem List/Assessment Assessment: Decreased Activ Tolerance, Decreased UE Strength, Dependent Transfers, Impaired Coordination, Impaired Self-Care Skills Pt demonstrates decreased strength, mobility, activity tolerance, and ADL performance. Pt to benefit from skilled OT intervention for ADL training, transfers, and safety education to maximize level of function and allow safe discharge plan. Discharge Recommendations Plan/Recommendations: Continue POC Treatment Plan/Plan of Care Treatment,Training & Education: Yes Patient would benefit from OT for education, treatment and training to promote independence in ADL's, mobility, safety and/or upper extremity function for ADL' s. Plan of Care: ADL Retraining, Functional Mobility, UE Funct Exercise/Act Treatment Duration: Sep 04, 2016 # of days/week 5 Visits Per Week: 5 Rehab Potential: Guarded Time/GCodes Start Time: 15:40 Stop Time: 15:50 Total Time Billed (hr/min): 10 Billed Treatment Time 1 visit, INES(10minutes) ROBERTO LOPEZ OT Aug 14, 2016 15:57
--- NOTE | 2016-08-14 16:08 | History & Physical-Hospitalist ---
HPI History of Present Illness: HPI/Chief Complaint this is a 80-year-old white male with a presumptive diagnosis of ALS. The patient has been in declining health over the last week unable to eat and now is falling and unable to ambulate. He has some confusion and thinks he's in [place]. We did discuss CODE STATUS and he does wish to be a DO NOT RESUSCITATE. He has increased weakness of his legs in particular and pain with movement of most of his joints. Otherwise the history is obtained primarily from his Source: patient, family Exam Limitations: clinical condition Date Seen 08/14/16 Attending Physician Armaan Matthews MD Referring Physician Date of Admission Aug 14, 2016 at 14:02 Home Medications & Allergies Home Medications Reviewed patient Home Medication Reconciliation Form Allergies Coded Allergies: No Known Drug Allergies (Unverified , 08/14/16) Past Uvuhnhx-Hrxhxl-Iqonjb Hx Patient Social History Marrital Status: Employed/Student: retired Alcohol Use: Denies Use Recreational Drug Use: No Smoking Status: Former Smoker Type Used: Cigarettes Recent Foreign Travel: No Contact w/other who traveled: No Recent Infectious Disease Expo: No Immunizations Up To Date Date of Pneumonia Vaccine: May 31, 2014 Date of Influenza Vaccine: Feb 29, 2016 Surgeries HX Surgeries: Yes (EYE SX X6 TOTAL, STONE BASKET, CYSTO, TURBT) Respiratory Hx Respiratory Disorders: No Cardiovascular Hx Cardiovascular Disorders: Yes Neurological Hx Neurological Disorders: Yes Neurological Disorders: ALS/Taylor Gehrig's, Dementia Genitourinary Hx Genitourinary Disorders: Yes (BLADDER CA) Gastrointestinal Hx Gastrointestinal Disorders: No Musculoskeletal Hx Musculoskeletal Disorders: Yes (ARTHRITIS) Endocrine Hx Endocrine Disorders: No HEENT HX ENT Disorders: No Psychosocial Hx Psychiatric Problems: No Blood Transfusions Hx Blood Disorders: No Review of Systems Constitutional: weakness EENTM: no symptoms reported Respiratory: short of breath Cardiovascular: no symptoms reported Gastrointestinal: constipation Genitourinary: no symptoms reported Musculoskeletal: muscle pain muscle stiffness muscle weakness Skin: dryness Psychiatric/Neurological: Depressed Physical Exam Physical Exam Vital Signs Vital Sign - Last 12Hours 08/14/16 08/14/16 10:20 14:35 Temp 98.2 Pulse 73 Resp 18 B/P 151/75 Pulse Ox 96 O2 Delivery Room Air Capillary Refill : Less Than 3 Seconds General Appearance: Chronically ill Other (elderly) HEENT: Other (oral thrush) Neck: Limited Range of Motion Respiratory: Lungs Clear Normal Breath Sounds No Accessory Muscle Use No Respiratory Distress Cardiovascular: Regular Rate, Rhythm No Gallop No Murmur Gastrointestinal: Non Tender Soft Rectal: Deferred Extremity: Pedal Edema Neurologic/Psychiatric: Alert Depressed Affect Disoriented x3 Motor Weakness ( lower legs greater than the upper arms) Other (fasciculations of the tongue) Lymphatic: No Adenopathy Results Results/Procedures Lab Laboratory Tests 08/14/16 11:00 Assessment/Plan Admission Diagnosis 1. urinary tract infection 2. Dehydration 3. Weakness 4. Falling 5. progressive neurologic deficits presumed to be ALS by 2 of 5 neurologists 6. oral thrush Plan for IV fluids, nystatin, Diflucan, IV antibiotics for urinary tract infection PT OT and swallowing evaluation. ROB PEREZ MD Aug 14, 2016 16:08
[2016-08-14] MEDS ORDERED: CURCUMIN PO (16:27)
[2016-08-14] MEDS ORDERED: IBUP-30 PO (16:27)
[2016-08-14] MEDS ORDERED: MAGN400O7 PO (16:27)
[2016-08-14] MEDS ORDERED: CHOL500049 PO (16:27)
[2016-08-14] MEDS ORDERED: ACET600C PO (16:27)
[2016-08-14] MEDS ORDERED: L.AC1CAP6 PO (16:27)
[2016-08-14] MEDS ORDERED: POLY17PO6 PO (16:27)
[2016-08-14] MEDS ORDERED: METHYLFOLATE PO (16:27)
[2016-08-14] MEDS ORDERED: TOLT4CAP13 PO (16:27)
[2016-08-14] MEDS ORDERED: DOCU-143 PO (16:27)
[2016-08-14] MEDS ORDERED: THIO200T PO (16:27)
[2016-08-14] MEDS ORDERED: ACET-2267 PO (16:30)
[2016-08-14] MEDS ORDERED: METR500T21 PO (16:30)
[2016-08-14] MEDS ORDERED: GLYCERIN ADULT SUPPOSITORY PR SCH (16:45)
[2016-08-14] MEDS: ACETAMINOPHEN 325 MG TABLET/CAPLET (TYLENOL) PO PRN (17:48)
[2016-08-14] MEDS: ENOXAPARIN 40 MG/0.4 ML (LOVENOX) SYR SC SCH (18:20)
[2016-08-14] MEDS: NYSTATIN ORAL SUSP 5 ML UDC PO SCH ×2 (18:20→23:49)
[2016-08-14] MEDS: NS IV 1000 ML 1,000 ML IV SCH (18:22)
[2016-08-14 20:30] VITALS: BP 143/74
[2016-08-14] MEDS: RT-ALBUTEROL SULF 2.5 MG/3 ML PRE-MIX VIAL INH SCH (20:30)
[2016-08-14] MEDS ORDERED: RT-ALBUTEROL HFA (VENTOLIN) PER PUFF IH SCH (21:00)
[2016-08-14] MEDS: CATHETER FLUSH 10 ML SYR IV SCH (22:00)
[2016-08-15] VITALS: BP 133/78
[2016-08-15] MEDS: NS IV 1000 ML 1,000 ML IV SCH ×2 (03:54→14:25)
[2016-08-15 04:00] VITALS: BP 144/74
[2016-08-15] MEDS: CATHETER FLUSH 10 ML SYR IV SCH ×3 (05:15→20:06)
[2016-08-15] MEDS: NYSTATIN ORAL SUSP 5 ML UDC PO SCH ×3 (05:18→17:37)
[2016-08-15] MEDS: RT-ALBUTEROL SULF 2.5 MG/3 ML PRE-MIX VIAL INH SCH ×3 (07:35→18:43)
[2016-08-15] MEDS ORDERED: UMECLIDINIUM BROMIDE (INCRUSE ELLIPTA) 7'S IH SCH (08:00)
[2016-08-15 08:29] VITALS: BP 118/78
[2016-08-15] MEDS ORDERED: TERAZOSIN 5 MG (HYTRIN) CAPSULE PO SCH (09:00)
[2016-08-15] MEDS ORDERED: amLODIPine 10 MG (NORVASC) TAB PO SCH (09:00)
[2016-08-15] MEDS ORDERED: ALLOPURINOL 100 MG (ZYLOPRIM) TAB PO SCH (09:00)
[2016-08-15] MEDS ORDERED: ASPIRIN 325 MG (5 GR) TABLET PO SCH (09:00)
[2016-08-15] MEDS ORDERED: TIOTROPIUM BROMIDE (SPIRIVA) 5'S INHALER IH SCH (09:00)
[2016-08-15] MEDS ORDERED: HYDROXYCHLOROQUINE 200 MG (PLAQUENIL) TAB PO SCH (09:00)
--- NOTE | 2016-08-15 10:13 | Physical Therapy Daily Note ---
PT Daily Note-Current Subjective Pt agreeable to get up to the chair. Pt's reports a steady decline in function over the past week. Mental Status Patient Orientation: Person, Confused (slightly), Place Transfers Functional [place] Measure 0=Not Assessed/NA 4=Minimal Assistance 1=Total Assistance 5=Supervision or Setup 2=Maximal Assistance 6=Modified [place] 3=Moderate Assistance 7=Complete IndependenceIRFPAI Quality Coding Scale 6 Independent with activity with or without an assistive device 5 Patient requires set up or clean up by helper. Patient completes activity by themselves 4 Supervision or touching assist (CGA). [place] provide cues , steadying assist 3 The helper provides less than half the effort to complete the activity 2 The helper provides more than half the effort to complete the activity 1 Dependent. The helper does all the effort to complete an activity 7 Patient refused to complete or attempt activity 9 The patient did not perform the activity before the current illness or injury 88 Not attempted due to Medical conditions or safety concerns Sup to sit EOB with max assist and max cuing. Pt able to sit EOB with CGA and occas rigid assist to keep from falling backward. Sat EOB a few minutes to take drinks of water and orient to the situation. Sit to stand x 1 with max assist. Pt then was max assist to stand and transfer to the chair, dance style. Pt needed additional assist to scoot back in the chair. Pt in chair post treatment with needs met with present. Nursing notified of transfer status and that patient up in chair. Assessment Current Status: Good Progress Pt toelrated treatment well and was participatory. Sat EOB fairly well and did assist with the SPT. Sat straight up in the chair and was alert. PT Assisted Goals Calender Machine Operator Helper Goals PT Assisted Goals Time Frame: Sep 04, 2016 Transfers (B,C,W/C) (FIM): 4 Gait (FIM): 1 Gait distance (FIM): 1=up to 49 ft Distance: 25' Gait Level of Assist: 3 Gait Assistive Device: FWW PT Plan Problem List Problem List: Activity Tolerance, Functional Strength, Safety, Balance, Gait, Transfer, Bed Mobility Treatment/Plan Treatment Plan: Continue Plan of Care Treatment Plan: Bed Mobility, Education, Functional Activity Ghassan, Functional Strength, Gait, Safety, Therapeutic Exercise, Transfers Treatment Duration: Sep 04, 2016 Visits Per Week: 5-6 Safety Risks/Education Patient Education: Safety Issues Teaching Recipient: Patient, Significant Other Teaching Methods: Discussion Response to Teaching: Reinforcement Needed Time/GCodes Time In: 820 Time Out: 847 Total Billed Treatment Time: 27 Total Billed Treatment visit FA 27 ERIS PRINCE PT Aug 15, 2016 10:13
[2016-08-15] MEDS: cefTRIAXone INJECTION 1,000 MG in NS (IVPB) 50 ML IV SCH (10:24)
[2016-08-15] MEDS: ACETAMINOPHEN 325 MG TABLET/CAPLET (TYLENOL) PO PRN ×2 (10:25→20:00)
[2016-08-15] MEDS: fluCOnazole (DIFLUCAN) 100 MG TAB PO SCH (10:25)
[2016-08-15 12:00] VITALS: BP 137/71
--- NOTE | 2016-08-15 12:30 | Progress Note-Hospitalist ---
Subjective HPI/CC On Admission this is a 80-year-old white male with a presumptive diagnosis of ALS. The patient has been in declining health over the last week unable to eat and now is falling and unable to ambulate. He has some confusion and thinks he's in [place]. We did discuss CODE STATUS and he does wish to be a DO NOT RESUSCITATE. He has increased weakness of his legs in particular and pain with movement of most of his joints. Otherwise the history is obtained primarily from his Date Seen 08/15/16 Subjective/Events-last exam patient says that he is no better today than yesterday. He remains very weak and unable to eat well. Had a long discussion with the that I doubted that he was can to get much better than this. Entertaining the thought of hospice care. Urine culture was negative for growth Review of Systems Neurological: : Confusion: Weakness Objective Exam Vital Signs Vital Sign - Last 12Hours 08/14/16 08/14/16 10:20 14:35 Temp 98.2 Pulse 73 Resp 18 B/P 151/75 Pulse Ox 96 O2 Delivery Room Air Capillary Refill : Less Than 3 Seconds General Appearance: Chronically ill Neck: Limited Range of Motion Respiratory: Lungs Clear Cardiovascular: Regular Rate, Rhythm No Gallop Gastrointestinal: No Organomegaly Non Tender Soft Rectal: Deferred Extremity: Non Tender No Calf Tenderness Neurologic/Psychiatric: Alert Depressed Affect Disoriented x3 Skin: Normal Color Assessment/Plan Assessment and Plan Assess & Plan/Chief Complaint Admission Diagnosis 1. urinary tract infection-day number 2 Rocephin no growth 2. Dehydration-improving 3. Weakness-PT 4. Falling 5. progressive neurologic deficits presumed to be ALS by 2 of 5 neurologists- now with dysphagia, does not want a feeding tube, sitter and hospice 6. oral thrush-day number 2 Diflucan and nystatin ROB PEREZ MD Aug 15, 2016 12:30
[2016-08-15 16:00] VITALS: BP 118/70
[2016-08-15] MEDS: ENOXAPARIN 40 MG/0.4 ML (LOVENOX) SYR SC SCH (17:37)
[2016-08-16] VITALS: BP 128/74
[2016-08-16] MEDS: NS IV 1000 ML 1,000 ML IV SCH ×2 (00:33→10:44)
[2016-08-16] MEDS: NYSTATIN ORAL SUSP 5 ML UDC PO SCH ×4 (00:44→17:48)
[2016-08-16] MEDS: ACETAMINOPHEN 325 MG TABLET/CAPLET (TYLENOL) PO PRN (00:44)
[2016-08-16] MEDS: CATHETER FLUSH 10 ML SYR IV SCH ×2 (06:00→11:25)
[2016-08-16] MEDS ORDERED: PATIENT MAY USE OWN MEDS, ALL MC SCH (07:45)
[2016-08-16 08:00] VITALS: BP 136/79
[2016-08-16] MEDS: ASPIRIN 325 MG (5 GR) TABLET PO SCH (08:27)
[2016-08-16] MEDS: amLODIPine 10 MG (NORVASC) TAB PO SCH (08:28)
[2016-08-16] MEDS: fluCOnazole (DIFLUCAN) 100 MG TAB PO SCH (08:28)
[2016-08-16] MEDS: cefTRIAXone INJECTION 1,000 MG in NS (IVPB) 50 ML IV SCH (08:28)
[2016-08-16] MEDS: TERAZOSIN 5 MG (HYTRIN) CAPSULE PO SCH (08:29)
[2016-08-16] MEDS: ALLOPURINOL 100 MG (ZYLOPRIM) TAB PO SCH (08:29)
[2016-08-16] MEDS: RT-ALBUTEROL SULF 2.5 MG/3 ML PRE-MIX VIAL INH SCH ×3 (08:49→19:07)
--- NOTE | 2016-08-16 12:17 | Progress Note-Hospitalist ---
Subjective HPI/CC On Admission this is a 80-year-old white male with a presumptive diagnosis of ALS. The patient has been in declining health over the last week unable to eat and now is falling and unable to ambulate. He has some confusion and thinks he's in [place]. We did discuss CODE STATUS and he does wish to be a DO NOT RESUSCITATE. He has increased weakness of his legs in particular and pain with movement of most of his joints. Otherwise the history is obtained primarily from his Date Seen 08/16/16 Subjective/Events-last exam patient has loud sonorous respirations . a long discussion with about taking him home in the futility of further treatments with his progressive neurologic deficit. she like to take him home with hospice if possible and if she can manage Review of Systems Gastrointestinal: : Other (inability to eat) Neurological: : Confusion: Weakness Objective Exam Vital Signs Vital Sign - Last 12Hours 08/14/16 08/14/16 08/15/16 10:20 14:35 20:00 Temp 98.2 Pulse 73 Resp 18 B/P 151/75 Pulse Ox 96 O2 Delivery Room Air O2 Flow Rate 2.00 Capillary Refill : Less Than 3 Seconds General Appearance: Other (sonorous respirations) Neck: Other (extended) Respiratory: Lungs Clear Cardiovascular: Regular Rate, Rhythm Assessment/Plan Assessment and Plan Assess & Plan/Chief Complaint Admission Diagnosis 1. urinary tract infection-day number 3 Rocephin no growth 2. Wactqitpvsm-phvejiuid-hybz IV fluids 3. Weakness-PT- 4. Falling-now unable to get up at all 5. progressive neurologic deficits presumed to be ALS by 2 of 5 neurologists- now with dysphagia, does not want a feeding tube, considering hospice 6. oral thrush-day number 3 Diflucan and nystatin ROB PEREZ MD Aug 16, 2016 12:17
--- NOTE | 2016-08-16 13:51 | Diagnostic Imaging Report ---
INDICATION: Fall, right hip pain. COMPARISON: None. FINDINGS: Multiple views of the right femur demonstrate no fracture or dislocation. The articular surfaces are age-appropriate. There is no osseous lesion or foreign body. Atherosclerosis is present. IMPRESSION: No fracture or dislocation. Dictated by: Dictated on workstation # [id number]
[2016-08-16 16:00] VITALS: BP 122/73
[2016-08-16] MEDS: ENOXAPARIN 40 MG/0.4 ML (LOVENOX) SYR SC SCH (17:48)
[2016-08-17 00:25] VITALS: BP 150/70
[2016-08-17] MEDS: NYSTATIN ORAL SUSP 5 ML UDC PO SCH ×4 (00:41→17:43)
[2016-08-17] MEDS: CATHETER FLUSH 10 ML SYR IV SCH ×4 (00:41→22:00)
[2016-08-17] MEDS: RT-ALBUTEROL SULF 2.5 MG/3 ML PRE-MIX VIAL INH SCH ×3 (07:44→19:33)
[2016-08-17 08:19] VITALS: BP 144/70
[2016-08-17] MEDS: cefTRIAXone INJECTION 1,000 MG in NS (IVPB) 50 ML IV SCH (09:17)
[2016-08-17] MEDS: fluCOnazole (DIFLUCAN) 100 MG TAB PO SCH (09:17)
[2016-08-17] MEDS: TERAZOSIN 5 MG (HYTRIN) CAPSULE PO SCH (09:18)
[2016-08-17] MEDS: ALLOPURINOL 100 MG (ZYLOPRIM) TAB PO SCH (09:18)
[2016-08-17] MEDS: amLODIPine 10 MG (NORVASC) TAB PO SCH (09:19)
[2016-08-17] MEDS: ASPIRIN 325 MG (5 GR) TABLET PO SCH (09:19)
--- NOTE | 2016-08-17 10:48 | Occupational Ther Daily Note ---
OT Current Status-Daily Note Subjective Pt seen in room, in bed, asleep. Unable to wake pt sufficiently to participate in therapy. Mental Status/Objective Functional [place] Measure 0=Not Assessed/NA 4=Minimal Assistance 1=Total Assistance 5=Supervision or Setup 2=Maximal Assistance 6=Modified [place] 3=Moderate Assistance 7=Complete [place] Other Treatment Pt verbalized a couple of answers to general questions but did not open his eyes. He attempted to reach overhead with R arm but did not have strength adequate to get full AROM and was unable to maintain position. He was not awake enough to do more than one repetition and did not awake enough to participate with L arm. Tx ended because pt unable to participate. OT Short Term Goals Short Term Goals 1=Demonstrate adherence to instructed precautions during ADL tasks. 2=Patient will verbalize/demonstrate understanding of assistive devices/ modifications for ADL. 3=Patient will improve strength/tolerance for activity to enable patient to perform ADL's. OT Collection Systems Technician Goals [facility] Goals Time Frame: Sep 04, 2016 Eating (FIM): 5 Grooming(FIM): 5 Bathing(FIM): 3 Upper Body Dressing(FIM): 4 Lower Body Dressing(FIM): 3 Toilet/Commode Transfer(FIM): 3 Additional Goals: 1-Demonstrate ADL Tasks, 2-Verbalize Understanding, 3- ImproveStrength/Ghassan 1=Demonstrate adherence to instructed precautions during ADL tasks. 2=Patient will verbalize/demonstrate understanding of assistive devices/ modifications for ADL. 3=Patient will improve strength/tolerance for activity to enable patient to perform ADL's. OT Education/Plan Problem List/Assessment Pt demonstrates decreased strength, mobility, activity tolerance, and ADL performance. Pt to benefit from skilled OT intervention for ADL training, transfers, and safety education to maximize level of function and allow safe discharge plan. Discharge Recommendations Plan/Recommendations: Continue POC Treatment Plan/Plan of Care Patient would benefit from OT for education, treatment and training to promote independence in ADL's, mobility, safety and/or upper extremity function for ADL' s. Plan of Care: ADL Retraining, Functional Mobility, UE Funct Exercise/Act Treatment Duration: Sep 04, 2016 Visits Per Week: 5 Rehab Potential: Guarded Time/GCodes Start Time: 10:33 Stop Time: 10:38 Total Time Billed (hr/min): 5 Billed Treatment Time visit, 5 minutes (no charge) NABOR DEMARCO OT Aug 17, 2016 10:48
--- NOTE | 2016-08-17 12:30 | Progress Note-Hospitalist ---
Standard Progress Note Progress Notes/Assess & Plan Date Seen 08/17/16 Diagnosis 1. urinary tract infection 2. Dehydration 3. Weakness 4. Falling 5. progressive neurologic deficits presumed to be ALS by 2 of 5 neurologists 6. oral thrush Plan for IV fluids, nystatin, Diflucan, IV antibiotics for urinary tract infection PT OT and swallowing evaluation. Assess & Plan/Chief Complaint The patient is known to me. He was admitted with impressive weakness which apparently had been progressive over a week's period of time. There is been an underlying current of decline over the past several years. They had seen multiple providers who had offered diagnoses such as Lyme disease but also amyotrophic lateral sclerosis. I believe the appearance suggests the ALS. The urine culture grew only multiple bacteria in small amounts. The species suggest skin contamination. He appears brighter today which may be the function of hydration. Physical therapy states that he remains a full effort to person assist to transfer from bed to bedside chair. He is not able to sustain himself sitting at the bedside independently. Physical exam: He is sitting in the bedside chair on my visit. He is more alert than on the ER visit Wednesday. He responds to simple commands. I am unable to understand his speech. Lungs are clear to auscultation. CV is regular. Impression: ALS. 2.sharp recent decline. Plan: Explore discharge opportunities DELILAH MARIE MD Aug 17, 2016 12:30
--- NOTE | 2016-08-17 12:50 | Physical Therapy Daily Note ---
PT Daily Note-Current Subjective Pt sleeping when this PT entered. Difficult to arouse. Pt's reports he has been asleep about 1.5 hours. Agrees to me waking him. Mental Status Patient Orientation: Person, Confused Transfers Functional [place] Measure 0=Not Assessed/NA 4=Minimal Assistance 1=Total Assistance 5=Supervision or Setup 2=Maximal Assistance 6=Modified [place] 3=Moderate Assistance 7=Complete IndependenceIRFPAI Quality Coding Scale 6 Independent with activity with or without an assistive device 5 Patient requires set up or clean up by helper. Patient completes activity by themselves 4 Supervision or touching assist (CGA). [place] provide cues , steadying assist 3 The helper provides less than half the effort to complete the activity 2 The helper provides more than half the effort to complete the activity 1 Dependent. The helper does all the effort to complete an activity 7 Patient refused to complete or attempt activity 9 The patient did not perform the activity before the current illness or injury 88 Not attempted due to Medical conditions or safety concerns Treatments Sup to sit EOB with max assist and min to mod assist to maintain sitting EOB; pt leans back at times and then leans forward at times--primarily due to decreased alertness. SPT bed to chair with max of 1 assist. Pt in chair post treatment with legs elevated and needs met. Nursing notified. Assessment Difficult to arouse this morning. Pt cooperative but groggy. Limited ability to participate in the transfers. Post treatment, his eyes were open and he was more alert. Pt benefit from being out of bed to reduce the risk of skin breakdown and pneumonia. PT Ultrasonic Seaming Machine Operator Goals Group Home Goals PT Group Home Goals Time Frame: Sep 04, 2016 Transfers (B,C,W/C) (FIM): 4 Gait (FIM): 1 Gait distance (FIM): 1=up to 49 ft Distance: 25' Gait Level of Assist: 3 Gait Assistive Device: FWW PT Plan Problem List Problem List: Activity Tolerance, Functional Strength, Transfer Treatment/Plan Treatment Plan: Continue Plan of Care Treatment Plan: Bed Mobility, Education, Functional Activity Ghassan, Functional Strength, Gait, Safety, Therapeutic Exercise, Transfers Treatment Duration: Sep 04, 2016 Visits Per Week: 5-6 Time/GCodes Time In: 1120 Time Out: 1135 Total Billed Treatment Time: 15 Total Billed Treatment visit FA 15 ERIS PRINCE PT Aug 17, 2016 12:50
[2016-08-17 16:55] VITALS: BP 113/59
[2016-08-17] MEDS: ENOXAPARIN 40 MG/0.4 ML (LOVENOX) SYR SC SCH (17:44)
[2016-08-18 00:02] VITALS: BP 112/61
[2016-08-18] MEDS: NYSTATIN ORAL SUSP 5 ML UDC PO SCH ×3 (05:51→12:04)
[2016-08-18] MEDS: CATHETER FLUSH 10 ML SYR IV SCH ×2 (06:03→13:57)
[2016-08-18] MEDS: RT-ALBUTEROL SULF 2.5 MG/3 ML PRE-MIX VIAL INH SCH ×2 (06:37→14:32)
[2016-08-18] MEDS: fluCOnazole (DIFLUCAN) 100 MG TAB PO SCH (08:34)
[2016-08-18] MEDS: ASPIRIN 325 MG (5 GR) TABLET PO SCH (08:35)
[2016-08-18] MEDS: ALLOPURINOL 100 MG (ZYLOPRIM) TAB PO SCH (08:35)
[2016-08-18] MEDS: TERAZOSIN 5 MG (HYTRIN) CAPSULE PO SCH (08:36)
[2016-08-18] MEDS: amLODIPine 10 MG (NORVASC) TAB PO SCH (08:37)
[2016-08-18] MEDS: cefTRIAXone INJECTION 1,000 MG in NS (IVPB) 50 ML IV SCH (08:38)
[2016-08-18 08:47] VITALS: BP 131/70
--- NOTE | 2016-08-18 11:07 | Speech Therapy Progress Note ---
Therapy Progress Note Speech pathology attempted dysphagia follow up/diet analysis with patient on this date. The patient was sleeping upon arrival. The patient's gave the clinician permission to wake the patient, however, stated, "sometimes he wakes and sometimes he doesn't." The speech pathologist attempted to wake the patient with gentle verbal prompts. Due to decreased alertness, the patient was seated in an upright position in bed. The patient continued to remain sleeping, demonstrating reduced responsiveness and lethargy. As the patient was unable to remain in a wakeful state, swallowing re-evaluation is not appropriate at this time. Speech pathology will continue to attempt re-assessment. Thank you. KAMARI GUDINO Aug 18, 2016 11:07
--- NOTE | 2016-08-18 11:10 | Progress Note-Hospitalist ---
Standard Progress Note Progress Notes/Assess & Plan Date Seen 08/18/16 Diagnosis 1. urinary tract infection 2. Dehydration 3. Weakness 4. Falling 5. progressive neurologic deficits presumed to be ALS by 2 of 5 neurologists 6. oral thrush Plan for IV fluids, nystatin, Diflucan, IV antibiotics for urinary tract infection PT OT and swallowing evaluation. Assess & Plan/Chief Complaint The patient was sleeping when I entered the room. His has decided that although it is her preference to take him home from a rational view there is no way she can handle this at home. It was my job to inform him of this. When I awakened him he attempted to strike at me. This is new behavior since yesterday. Caregivers have also had this experience. He became tearful when informed but ultimately agreed that this had to be. Arrangements have been made at medical [facility] accordingly. Physical exam: The patient is becoming a bit [place] as he has not shaved since admission. Lungs are clear to auscultation. CV is regular. He remains a maximum lift from to assist to stand and pivot to chair. Impression: ALS with progressive decline. 2.dehydration. 3.hypertension DELILAH MARIE MD Aug 18, 2016 11:10
[2016-08-18] MEDS ORDERED: HALO1TAB PO (11:17)
--- NOTE | 2016-08-18 11:24 | Discharge Inst-Simple/Standard ---
Discharge Inst-Standard Patient Instructions/Follow Up Plan of Care/Instructions/FU: Patient is presumed to have ALS. He has declined rather markedly and his physical abilities over the past month. 3. PT OT and speech therapy have been ordered in an attempt to restore him somewhat Activity as Tolerated: Yes Goal: Comfort and safety Discharge Diet: Other Diet (pure) DELILAH MARIE MD Aug 18, 2016 11:24
--- NOTE | 2016-08-18 11:37 | Occ Therapy Progress Note ---
Therapy Progress Note Pt. in bed. Eyes closed. Spouse in room and states that pt. received bad news , that he wasn't going home. States that he will be discharging today to half-way. Pt. is able to wake up for OT, but requires cues throughout treatment to stay awake and keep eyes open. Pt. requires max cues but is able to complete 4 bilateral UE exercises x 10 reps in all planes. Pt. has difficulty with complete follow through of exercises, and requires cues and assist at times. Completed exercises to increase overall strength for daily tasks such as donning shirt. All needs met in room. Spouse asked if she needed anything and she does not. 1, Ex [id number] YUNG PACHECO OT Aug 18, 2016 11:37
[2016-08-18 16:00] VITALS: BP 143/67
[2016-08-18 16:10] VITALS: BP 143/67
--- NOTE | 2016-08-19 15:59 | Physical Therapy Progress Note ---
Therapy Progress Note G codes for evaluation upon review of evaluation documentation on 08/14/16 MOB CUR CM and MOB GOAL CL G codes for discharge on 08/17/16 MOB DC CM MOB GOAL CL ERIS PRINCE PT Aug 19, 2016 15:59
--- NOTE | 2016-09-02 13:47 | Discharge Summary-Hospitalist ---
Diagnosis/Chief Complaint Date of Admission Aug 14, 2016 at 14:02 Date of Discharge Aug 18, 2016 at 16:10 Discharge Date: Aug 18, 2016 Admission Diagnosis 1. urinary tract infection 2. Dehydration 3. Weakness 4. Falling 5. progressive neurologic deficits presumed to be ALS by 2 of 5 neurologists 6. oral thrush Plan for IV fluids, nystatin, Diflucan, IV antibiotics for urinary tract infection PT OT and swallowing evaluation. Discharge Diagnosis 1.dehydration 2.Progressive neurologic disability characterized by progressive weakness and now multiple falls. This has a history and appearance of amyotrophic lateral sclerosis 3.urinary tract infection ruled out Reason Hospital Visit/Course this is a 80-year-old white male with a presumptive diagnosis of ALS. The patient has been in declining health over the last week unable to eat and now is falling and unable to ambulate. He has some confusion and thinks he's in [place]. We did discuss CODE STATUS and he does wish to be a DO NOT RESUSCITATE. He has increased weakness of his legs in particular and pain with movement of most of his joints. Otherwise the history is obtained primarily from his The patient had been given multiple diagnoses by multiple outpatient providers. The principal focus was on the possibility or probability of amyotrophic lateral sclerosis. The possibility of Lyme disease had also been entertained. He had had a long period of IV antibiotics without any improvement. His states that the general trend had been downward however over the week prior to admission it had become Rather precipitous and he now was unable to stand or walk. His intake has been poor as well. After IV fluids and antibiotics while awaiting the urine culture which returned without clear pathogens, the patient exhibited no particular improvement this was discussed at great length with the . She reported that he would be happy she had to go to the long term. She had explored all of her options relative to taking him home and finally came to the agreement that at least for the present she would be unable to handle him and that he would require long term admission. PT and OT would be continued in the hopes that he might recover enough for discharge to his home. This is considered to be likely optimistic. Discharge Summary Discharge Physical Examination Allergies: Coded Allergies: No Known Drug Allergies (Unverified , 08/14/16) Hospital Course Labs (last 24 hrs) Microbiology 08/14/16 Urine Culture - Final, Complete Discharge Home Medications: Active Scripts Active Haloperidol 1 Mg Tablet 1 Mg PO HS PRN Reported Tylenol Extra Strength (Acetaminophen) 500 Mg Tablet 500-1,000 Mg PO Q6H PRN Advil (Ibuprofen) 200 Mg Tablet 200 Mg PO Q6H PRN Colace (Docusate Sodium) 100 Mg Capsule 100 Mg PO HS Milk of Magnesia (Magnesium Hydroxide) 400 Mg/5 Ml Oral.susp 30 Ml PO DAILY PRN Miralax (Polyethylene Glycol 3350) 17 Gm Powd.pack 17 Gm PO DAILY PRN Probiotic (L.acidoph & Paracasei,B.lactis) 1 Each Capsule 1 Cap PO DAILY PRN Tolterodine Tartrate ER (Tolterodine Tartrate) 4 Mg Cap.er.24h 4 Mg PO 1800 Vitamin D3 (Cholecalciferol (Vitamin D3)) 50,000 Unit Capsule 50,000 Unit PO MO Hydroxychloroquine Sulfate 200 Mg Tablet 200 Mg PO DAILY Aspirin 325 Mg Tablet 325 Mg PO DAILY Metanx Capsule (Levomefolate/B6/B12/Algal Oil) 1 Each Capsule 1 Cap PO BID Norvasc Tablet (Amlodipine Besylate) 10 Mg Tablet 10 Mg PO DAILY Hytrin 5MG (Terazosin HCl) 5 Mg Capsule 5 Mg PO DAILY Zyloprim (Allopurinol) 100 Mg Tab 100 Mg PO DAILY Instructions to patient/family Please see electonic discharge instructions given to patient. Clinical Quality Measures DVT/VTE Risk/Contraindication: Risk Factor Score Per Nursin RFS Level Per Nursing on Admit: 4+=Very High DELILAH MARIE MD Sep 02, 2016 13:46
== END 2016-08-18 16:10 ==
LOC: EDUNIT# 10:16 → ER 10:20 → 4TH 14:02 → INTOOBSV 14:02
PROVIDERS: ADMIT Internal Medicine; ATTEND Internal Medicine
DX: N39.0 Urinary tract infection, site not specified (principal); E86.0 Dehydration; R53.1 Weakness; R29.6 Repeated falls; G12.21 Amyotrophic lateral sclerosis; R13.10 Dysphagia, unspecified; B37.0 Candidal stomatitis; Z66 Do not resuscitate
CPT/HCPCS: 36415; 51702; 71010; 73552; 80053; 81000; 85027; 87088; 94640; 94760; 96361; 96374; G0378

== ENCOUNTER 2016-08-28 09:30 | Emergency (ER) | payer MEDICARE, OTHER ==
[~2016-08-28] VITALS: Ht 177.8 cm; Wt 77.1 kg
[~2016-08-28 09:30] MED LIST changes: +ACET-2267 PO; +ACET600C PO; +ASPI-808 PO; +CHOL500049 PO; +CURCUMIN PO; +DOCU-143 PO; +HALO1TAB PO; +HYDR200T46 PO; +IBUP-30 PO; +L.AC1CAP6 PO; +LEVO1CAP11 PO; +MAGN400O7 PO; +METHYLFOLATE PO; +METR500T21 PO; +POLY17PO6 PO; +THIO200T PO; +TOLT4CAP13 PO; +VIT D3 PO
--- NOTE | 2016-08-28 09:56 | ED Trauma-Multisystem ---
General Chief Complaint: Trauma-Non Activation Stated Complaint: FELL AND HIT HIS HEAD Nursing Triage Note: ARRIVED VIA WC FROM [facility] AFTER FALLING OUT OF WHEN TRYING TO GET UP. PT HAS A SMALL ABRASION WITH RAISED HEMATOMA TO RIGHT FOREHEAD. JESSICA LOC. DENIES NECK PAIN. Source of Information: Patient Exam Limitations: No Limitations History of Present Illness Time Seen by Provider: 09:48 Initial Comments The patient is a 80-year-old white male known to me. He was here about 2 weeks ago with progressive weakness. This had been going on over a period of perhaps 2 years and was felt to be most likely to be ALS. This morning while sitting in a wheelchair fell forward striking his head. He is not clear about loss of consciousness. He reports pain in his forehead but not his neck. He is a bit ambiguous in his history which would be consistent with my past contact with him Occurred: Just Prior to Arrival Pain/Injury Location: Head Method of Injury: Fall Allergies and Home Medications Allergies Coded Allergies: No Known Drug Allergies (Unverified , 08/14/16) Home Medications Acetaminophen 500 Mg Tablet, 500-1,000 MG PO Q6H PRN for PAIN, (Reported) Allopurinol 100 Mg Tab, 100 MG PO DAILY, (Reported) Amlodipine Besylate 10 Mg Tablet, 10 MG PO DAILY, (Reported) Aspirin 325 Mg Tablet, 325 MG PO DAILY, (Reported) Cholecalciferol (Vitamin D3) 50,000 Unit Capsule, 50,000 UNIT PO Mo, (Reported) Docusate Sodium 100 Mg Capsule, 100 MG PO HS, (Reported) Haloperidol 1 Mg Tablet, 1 MG PO HS PRN for aggressive behavior, #20 Prescribed by: DELILAH MARIE on 08/18/16 1117 Hydroxychloroquine Sulfate 200 Mg Tablet, 200 MG PO DAILY, (Reported) Ibuprofen 200 Mg Tablet, 200 MG PO Q6H PRN for PAIN, (Reported) L.acidoph & Paracasei,B.lactis 1 Each Capsule, 1 CAP PO DAILY PRN for DIGESTIVE HEALTH, (Reported) Levomefolate/B6/B12/Algal Oil 1 Each Capsule, 1 CAP PO BID, (Reported) Magnesium Hydroxide 400 Mg/5 Ml Oral.susp, 30 ML PO DAILY PRN for CONSTIPATION, (Reported) Polyethylene Glycol 3350 17 Gm Powd.pack, 17 GM PO DAILY PRN for CONSTIPATION, ( Reported) Terazosin Hcl 5 Mg Capsule, 5 MG PO DAILY, (Reported) Tolterodine Tartrate 4 Mg Cap.er.24h, 4 MG PO 1800, (Reported) Constitutional: see HPI Eyes: No Symptoms Reported Ears: No Symptoms Reported Nose: No Symptoms Reported Mouth: No Symptoms Reported Throat: No Symptoms to Report Respiratory: no symptoms reported Cardiovascular: No Symptoms Reported Gastrointestinal: no symptoms reported Genitourinary: no symptoms reported Musculoskeletal: muscle weakness Skin: no symptoms reported Psychiatric/Neurological: No Symptoms Reported Past Epfhjdv-Rkisaf-Ryqpjq Hx Patient Social History Type Used: Cigarettes Recent Foreign Travel: No Contact w/Someone Who Travel: No Recent Infectious Disease Expo: No Recent Hopitalizations: No Immunizations Up To Date Date of Pneumonia Vaccine: May 31, 2014 Date of Influenza Vaccine: Feb 29, 2016 Seasonal Allergies Seasonal Allergies: No Surgeries HX Surgeries: Yes (EYE SX X6 TOTAL, STONE BASKET, CYSTO, TURBT) Respiratory Hx Respiratory Disorders: No Respiratory Disorders: Sleep Apnea Cardiovascular Hx Cardiac Disorders: Yes Neurological Hx Neurological Disorders: Yes Neurological Disorders: ALS/Taylor Gehrig's, Dementia Genitourinary Hx Genitourinary Disorders: Yes (BLADDER CA) Genitourinary Disorders: Kidney Stones Gastrointestinal Hx Gastrointestinal Disorders: No Musculoskeletal Hx Musculoskeletal Disorders: Yes (ARTHRITIS) Musculoskeletal Disorders: Arthritis Endocrine Hx Endocrine Disorders: No HEENT HX ENT Disorders: No HEENT Disorders: Cataract Cancer Cancer: Bladder Psychosocial Hx Psychiatric Problems: No Behavioral Health Disorders: Depression Blood Transfusions Hx Blood Disorders: No Family Medical History Family Medial History: Arthritis 19 MOTHER Gastroenteritis SON Neoplasm SON Osteoporosis 19 MOTHER Parkinson's disease G8 SISTER Psychosocial problem SON Physical Exam Vital Signs Vital Sign - Last 12Hours 08/28/16 09:35 Temp 96.7 Pulse 74 Resp 16 B/P (MAP) 128/79 Pulse Ox 97 Temperature (Fahrenheit): 96.7 General Appearance: Mild Distress, Other Head: Contusions Eyes: Bilateral Eye Normal Inspection Ears, Nose, Throat: Hearing Grossly Normal, No Evidence of ENT Injury Neck: Other (demonstrates he can turn his head without pain) Cardiovascular: Regular Rate, Rhythm, No Edema, No Gallop, No JVD, No Murmur, Normal Peripheral Pulses Respiratory: Chest Non Tender, Lungs Clear, Normal Breath Sounds, No Accessory Muscle Use, No Respiratory Distress Gastrointestinal: Normal Bowel Sounds, No Organomegaly, No Pulsatile Mass, Non Tender, Soft Extremity: Normal Capillary Refill, Normal Inspection, Normal Range of Motion, Non Tender, No Calf Tenderness, No Pedal Edema Neurologic/Psychiatric: Disoriented x3 (is aware of person and place but not clear about time and situation) Skin: Normal Color, Warm/Dry Comments There is a 2 cm hematoma on the right forehead at the temporal hairline. There is a minimum abrasion in the center of this. He wears wire-rimmed glasses which are not that there is at the corner of the eye Hughes Coma Score Best Eye Response (Francesca): (4) Open Spontaneously Best Verbal Response (Francesca): (4) Confused Conversation Best Motor Response (Hughes): (6) Obeys Commands Progress/Results/Core Measures Results/Orders My Orders Orders - DELILAH MARIE MD Ct Head/Cervical Spine Wo (08/28/16 09:46) Vital Signs/I&O Vital Sign - Last 12Hours 08/28/16 09:35 Temp 96.7 Pulse 74 Resp 16 B/P (MAP) 128/79 Pulse Ox 97 Blood Pressure Mean: 95 Departure Communication Progress Notes CT head and cervical spine were negative. A long discussion ensued with the relative to her frustration with his lack of progress which is actually most likely a function of degenerative neuromuscular disease and pressure both self-imposed and from her family to take him back to the home Impression Impression: Primary Impression: contusion right forehead Disposition: 01 HOME, SELF-CARE Condition: Stable/Unchanged Departure-Patient Inst. Decision time for Depature: 10:52 Referrals: JOSÉ HURLEY MD (PCP/Family) Primary Care Physician DELILAH MARIE MD Aug 28, 2016 09:55
--- NOTE | 2016-08-28 10:16 | Diagnostic Imaging Report ---
PROCEDURE: CT head and CT cervical spine without contrast. TECHNIQUE: Multiple contiguous axial images were obtained through the brain and cervical spine without the use of intravenous contrast. Sagittal and coronal reformations through the cervical spine were then performed. INDICATION: Fall. Trauma to the head. COMPARISON: 08/11/2011. FINDINGS: CT head: The ventricles and cortical sulci are diffusely prominent, compatible with age-related volume loss. There are confluent areas of abnormal, low attenuation in the periventricular white matter. This is consistent with chronic small vessel ischemic changes. There is no midline shift or mass-effect. No acute intra-axial hemorrhage is seen. There are no abnormal areas of increased or decreased density to suggest acute hemorrhage or edema. No extra-axial masses or collections are present. The bony calvarium is intact. The visualized paranasal sinuses are unremarkable. The mastoid air cells are clear. CT CERVICAL SPINE: Static alignment of the cervical spine is maintained. There is no significant anterolisthesis or retrolisthesis. There is no evidence of jumped facets. Vertebral body heights are maintained. There is no evidence of acute fracture. No bony fragments are seen within the spinal canal. There are multilevel degenerative changes consisting of intervertebral disc height loss with anterior and posterior disc osteophyte complex formations. These changes are fairly diffuse, but appear greatest at the C3-C4 and C5-C6 and C6-C7 levels. Pre-and paravertebral soft tissue structures unremarkable. Note is made of calcified carotid atherosclerosis. Included views of the lung apices are unremarkable. IMPRESSION: 1. No acute intracranial abnormality. No CT evidence of mass, acute infarct or intracranial hemorrhage. 2. Chronic small vessel ischemic changes in deep white matter. 3. No CT evidence of acute fracture or dislocation of cervical spine. 4. Multilevel degenerative changes of cervical spine. Dictated by: Dictated on workstation # [id number]
[2016-08-28 11:00] VITALS: BP 117/80
--- OUTSIDE RECORDS SUMMARY | 2016-09-20 08:02 | XMS REPORT | Continuity of Care Document ---
Author Author [facility] Organization [facility] Address Unknown Phone Unavailable Allergies Active Description Code Type Severity Reaction Onset Reported/Identified Relationship to Patient Clinical Status Yes No Known Drug Allergies [id number] Drug Allergy Unknown N/ A 08/14/2016 Medications Problems Date Dx Coded Attending Type Code Diagnosis Diagnosed By 08/13/2011 Ot 188.9 MALIG KELLY BLADDER NOS 08/13/2011 Ot 272.4 HYPERLIPIDEMIA NEC/NOS 08/13/2011 Ot 274.9 GOUT NOS 08/13/2011 Ot 300.00 ANXIETY STATE NOS 08/13/2011 Ot 401.0 MALIGNANT HYPERTENSION 08/13/2011 Ot 433.30 MULT BILTRAL ARTERY OCCLUSION WO CEREBRA 08/13/2011 Ot 435.9 TRANS CEREB ISCHEMIA NOS 08/13/2011 Ot 496 CHR AIRWAY OBSTRUCT NEC 08/13/2011 Ot 593.9 RENAL URETERAL DIS NOS 08/13/2011 Ot V15.82 HISTORY OF TOBACCO USE 01/20/2012 Ot 592.1 CALCULUS OF URETER 01/20/2012 Ot 789.04 ABDOMINAL PAIN, LEFT LOWER QUADRANT 01/26/2012 Ot 272.4 HYPERLIPIDEMIA NEC/NOS 01/26/2012 Ot 276.51 DEHYDRATION 01/26/2012 Ot 287.5 THROMBOCYTOPENIA NOS 01/26/2012 Ot 401.9 HYPERTENSION NOS 01/26/2012 Ot 496 CHR AIRWAY OBSTRUCT NEC 01/26/2012 Ot 562.10 DIVERTICULOSIS COLON (W/O MENT OF HEMORR 01/26/2012 Ot 584.9 ACUTE RENAL FAILURE, UNSPECIFIED 01/26/2012 Ot 592.0 CALCULUS OF KIDNEY 01/26/2012 Ot 592.1 CALCULUS OF URETER 01/26/2012 Ot V12.54 PERSONAL HX OF TIA, CEREBRAL INFARCTION 01/26/2012 Ot V15.82 HISTORY OF TOBACCO USE 01/16/2014 DENNIS SUAREZ MD Ot 188.9 MALIG KELLY BLADDER NOS 10/30/2015 Ot 592.1 CALCULUS OF URETER 10/30/2015 Ot 789.04 ABDOMINAL PAIN, LEFT LOWER QUADRANT 03/31/2016 Ot 592.1 CALCULUS OF URETER 03/31/2016 Ot 789.04 ABDOMINAL PAIN, LEFT LOWER QUADRANT 06/12/2016 LIBRA SANZ INSIDE SALES PERSON Ot A69.20 LYME DISEASE, UNSPECIFIED 06/12/2016 LIBRA SANZ INSIDE SALES PERSON Ot Z45.2 ENCOUNTER FOR ADJUSTMENT AND MANAGEMENT 06/23/2016 SANZ DO, NICA J Ot A69.20 LYME DISEASE, UNSPECIFIED 06/23/2016 SANZ DO, NICA J Ot 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 06/26/2016 SANZ DO, NICA J Ot A69.20 LYME DISEASE, UNSPECIFIED 06/26/2016 SANZ DO, NICA J Ot 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 07/01/2016 SANZ DO, NICA J Ot A69.20 LYME DISEASE, UNSPECIFIED 07/01/2016 SANZ DONICA J Ot 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 07/03/2016 SANZ DONICA J Ot A69.20 LYME DISEASE, UNSPECIFIED 07/03/2016 SANZ DO, NICA J Ot 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 07/05/2016 SANZ DO, NICA J Ot A69.20 LYME DISEASE, UNSPECIFIED 07/05/2016 SANZ DO, NICA J Ot 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 07/07/2016 SANZ DO, NICA J Ot 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 07/07/2016 SANZ DO, NICA J Ot A69.20 LYME DISEASE, UNSPECIFIED 07/07/2016 SANZ DONICA J Ot 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 07/08/2016 SANZ DO, NICA J Ot 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 07/09/2016 SANZ DO, NICA J Ot A69.20 LYME DISEASE, UNSPECIFIED 07/09/2016 SANZ DO, NICA J Ot 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 07/10/2016 SANZ DONICA J Ot A69.20 LYME DISEASE, UNSPECIFIED 07/10/2016 SANZ DO, NICA J Ot 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 07/21/2016 LIBRA SANZ INSIDE SALES PERSON Ot A69.20 LYME DISEASE, UNSPECIFIED 07/21/2016 LIBRA SANZ INSIDE SALES PERSON Ot Z45.2 ENCOUNTER FOR ADJUSTMENT AND MANAGEMENT 07/21/2016 NICA SANZ DO Ot A69.20 LYME DISEASE, UNSPECIFIED 07/21/2016 NICA SANZ DO, Ot 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 07/21/2016 NICA SANZ DO Ot A69.20 LYME DISEASE, UNSPECIFIED 07/21/2016 NICA SANZ DO Ot 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 07/21/2016 LIBRA SANZ Ot A69.20 LYME DISEASE, UNSPECIFIED 07/21/2016 LIBRA SANZ Ot Z45.2 ENCOUNTER FOR ADJUSTMENT AND MANAGEMENT 07/22/2016 NICA SANZ DO Ot A69.20 LYME DISEASE, UNSPECIFIED 07/22/2016 NICA SANZ DO Ot 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 08/14/2016 Ot 795.79 OTH AND UNSPEC NONSPECIFIC IMMUNOLOGICAL 08/14/2016 EMMANUELLE DUBOSE APRN Ot 275.49 OTH DISORD/CALCIUM METABOLISM 08/14/2016 EMMANUELLE DUBOSE JOB SERVICE CONSULTANT Ot 712.36 CHONDROCALCIN NOS-L/LEG 08/14/2016 EMMANUELLE DUBOSE JOB SERVICE CONSULTANT Ot 719.46 JOINT PAIN-L/LEG 08/14/2016 EMMANUELLE DUBOSE JOB SERVICE CONSULTANT Ot 719.56 JT STIFFNESS NEC-L/LEG 08/14/2016 MEI GONZALES, JOSÉ Banerjee Ot 780.4 DIZZINESS AND GIDDINESS 08/14/2016 MEI GONZALES, JOSÉ Banerjee Ot V12.54 PERSONAL HX OF TIA, CEREBRAL INFARCTION 08/14/2016 DENNIS SUAREZ MD Ot 188.9 MALIG KELLY BLADDER NOS 08/14/2016 DENNIS SUAREZ MD Ot V72.81 IOPF-OXL-EBGTGHIWT CARDIOVASCULAR 08/14/2016 DENNIS SUAREZ MD Ot V74.8 SCREEN-BACTERIAL DIS NEC 08/14/2016 LIBRA SANZ Ot A69.20 LYME DISEASE, UNSPECIFIED 08/14/2016 LIBRA SANZ Ot Z45.2 ENCOUNTER FOR ADJUSTMENT AND MANAGEMENT 08/14/2016 NICA SANZ DO Ot A69.20 LYME DISEASE, UNSPECIFIED 08/14/2016 NICA SANZ DO Ot 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 08/14/2016 NICA SANZ DO Ot 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 08/14/2016 NICA SANZ DO Ot A69.20 LYME DISEASE, UNSPECIFIED 08/14/2016 VYON DONICA Ot 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 08/14/2016 SANZ DONICA Ot A69.20 LYME DISEASE, UNSPECIFIED 08/14/2016 SANZ DONICA Ot 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 08/14/2016 NICA SANZ DO Ot A69.20 LYME DISEASE, UNSPECIFIED 08/14/2016 SANZ DONICA Ot 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 08/14/2016 SANZNICA OLIVARES DO Ot 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 08/18/2016 MEI GONZALES, JOSÉ Banerjee Ot B37.0 CANDIDAL STOMATITIS 08/18/2016 JOSÉ HURLEY MD Ot E86.0 DEHYDRATION 08/18/2016 JOSÉ HURLEY MD, Ot 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 08/18/2016 JOSÉ HURLEY MD Ot N39.0 URINARY TRACT INFECTION, SITE NOT SPECIF 08/18/2016 JOSÉ HURLEY MD Ot R13.10 DYSPHAGIA, UNSPECIFIED 08/18/2016 JOSÉ HURLEY MD Ot R29.6 REPEATED FALLS 08/18/2016 JOSÉ HURLEY MD Ot R53.1 WEAKNESS 08/18/2016 JOSÉ HURLEY MD Ot Z66 DO NOT RESUSCITATE 08/28/2016 DELILAH MARIE MD Ot F03.90 UNSPECIFIED DEMENTIA WITHOUT BEHAVIORAL 08/28/2016 DELILAH MARIE MD Ot 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 08/28/2016 DELILAH MARIE MD Ot M47.812 SPONDYLOSIS W/O MYELOPATHY OR RADICULOPA 08/28/2016 DELILAH MARIE MD Ot S00.83XA CONTUSION OF OTHER PART OF HEAD, INITIAL 08/28/2016 DELILAH MARIE MD, Ot W05.0XXA FALL FROM NON-MOVING WHEELCHAIR, INITIAL 08/28/2016 DELILAH MARIE MD Ot Y92.[address] IN [facility] NON-INSTITUT ( PRIVATE 08/28/2016 DELILAH MARIE MD Ot Y99.8 OTHER EXTERNAL CAUSE STATUS 08/28/2016 DELILAH MARIE MD, Ot Z79.82 RETIREMENT (CURRENT) USE OF ASPIRIN 08/28/2016 DELILAH MARIE MD, Ot Z79.899 OTHER RETIREMENT (CURRENT) DRUG THERAPY 08/31/2016 DELILAH MARIE MD, Ot F03.90 UNSPECIFIED DEMENTIA WITHOUT BEHAVIORAL 08/31/2016 DELILAH MARIE MD, Ot 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 08/31/2016 DELILAH MARIE MD, Ot M47.812 SPONDYLOSIS W/O MYELOPATHY OR RADICULOPA 08/31/2016 DELILAH MARIE MD, Ot S00.83XA CONTUSION OF OTHER PART OF HEAD, INITIAL 08/31/2016 DELILAH MARIE MD, Ot W05.0XXA FALL FROM NON-MOVING WHEELCHAIR, INITIAL 08/31/2016 DELILAH MARIE MD, Ot Y92.[address] IN [facility] ( PRIVATE 08/31/2016 DELILAH MARIE MD, Ot Y99.8 OTHER EXTERNAL CAUSE STATUS 08/31/2016 DELILAH MARIE MD, Ot Z79.82 FINISHING MANAGER (CURRENT) USE OF ASPIRIN 08/31/2016 DELILAH MARIE MD, Ot Z79.899 OTHER FINISHING MANAGER (CURRENT) DRUG THERAPY 08/31/2016 NICA SANZ DO, Ot A69.20 LYME DISEASE, UNSPECIFIED 08/31/2016 NICA SANZ DO, Ot 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 08/31/2016 NICA SANZ DO, Ot 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 Procedures Code Description Performed By Performed On 56.0 TU REMOV URETER OBSTRUCT 01/25/2012 59.8 URETERAL CATHETERIZATION 01/25/2012 Results Test Result Range Automated blood complete blood count (hemogram) panel - 06/10/16 10:30 Blood leukocytes automated count (number/volume) 6.6 10*3/ uL 4.3-11.0 Blood erythrocytes automated count (number/volume) 4.34 10*6 /uL 4.35-5.85 Venous blood hemoglobin measurement (mass/volume) 13.2 g/dL 13.3-17.7 Blood hematocrit (volume fraction) 39 % 40-54 Automated erythrocyte mean corpuscular volume 89 [foz_us] 80-99 Automated erythrocyte mean corpuscular hemoglobin (mass per erythrocyte) 30 pg 25-34 Automated erythrocyte mean corpuscular hemoglobin concentration measurement ( mass/volume) 34 g/dL 32-36 Automated erythrocyte distribution width ratio 13.7 % 10.0-14.5 Automated blood platelet count (count/volume) 153 10*3/uL 130-400 Automated blood platelet mean volume measurement 10.3 [foz_ us] 7.4-10.4 Comprehensive metabolic panel - 06/10/16 10:30 Serum or plasma sodium measurement (moles/volume) 139 mmol/ L 135-145 Serum or plasma potassium measurement (moles/volume) 3.8 mmol/L 3.6-5.0 Serum or plasma chloride measurement (moles/volume) 109 mmol /L 98-107 Carbon dioxide 23 mmol/L 21-32 Serum or plasma anion gap determination (moles/volume) 7 mmol/L 5-14 Serum or plasma urea nitrogen measurement (mass/volume) 22 mg/dL 7-18 Serum or plasma creatinine measurement (mass/volume) 1.31 mg /dL 0.60-1.30 Serum or plasma urea nitrogen/creatinine mass ratio 17 NRG Serum or plasma creatinine measurement with calculation of estimated glomerular filtration rate 53 NRG Serum or plasma glucose measurement (mass/volume) 98 mg/dL 70-105 Serum or plasma calcium measurement (mass/volume) 9.0 mg/dL 8.5-10.1 Serum or plasma total bilirubin measurement (mass/volume) 0.8 mg/dL 0.1-1.0 Serum or plasma alkaline phosphatase measurement (enzymatic activity/volume) 58 U/L 40-136 Serum or plasma aspartate aminotransferase measurement (enzymatic activity/ volume) 17 U/L 5-34 Serum or plasma alanine aminotransferase measurement (enzymatic activity/volume ) 16 U/L 0-55 Serum or plasma protein measurement (mass/volume) 6.4 g/dL 6.4-8.2 Serum or plasma albumin measurement (mass/volume) 3.5 g/dL 3.2-4.5 Complete blood count (CBC) with automated white blood cell (WBC) differential - 06/16/16 12:30 Blood leukocytes automated count (number/volume) 6.2 10*3/ uL 4.3-11.0 Blood erythrocytes automated count (number/volume) 4.35 10*6 /uL 4.35-5.85 Venous blood hemoglobin measurement (mass/volume) 13.3 g/dL 13.3-17.7 Blood hematocrit (volume fraction) 39 % 40-54 Automated erythrocyte mean corpuscular volume 90 [foz_us] 80-99 Automated erythrocyte mean corpuscular hemoglobin (mass per erythrocyte) 31 pg 25-34 Automated erythrocyte mean corpuscular hemoglobin concentration measurement ( mass/volume) 34 g/dL 32-36 Automated erythrocyte distribution width ratio 13.9 % 10.0-14.5 Automated blood platelet count (count/volume) 134 10*3/uL 130-400 Automated blood platelet mean volume measurement 10.8 [foz_ us] 7.4-10.4 Automated blood neutrophils/100 leukocytes 75 % 42-75 Automated blood lymphocytes/100 leukocytes 14 % 12-44 Blood monocytes/100 leukocytes 7 % 0-12 Automated blood eosinophils/100 leukocytes 3 % 0-10 Automated blood basophils/100 leukocytes 1 % 0-10 Blood neutrophils automated count (number/volume) 4.6 10*3 1.8-7.8 Blood lymphocytes automated count (number/volume) 0.9 10*3 1.0-4.0 Blood monocytes automated count (number/volume) 0.4 10*3 0.0-1.0 Automated eosinophil count 0.2 10*3/uL 0.0-0.3 Automated blood basophil count (count/volume) 0.0 10*3/uL 0.0-0.1 Comprehensive metabolic panel - 06/16/16 12:30 Serum or plasma sodium measurement (moles/volume) 140 mmol/ L 135-145 Serum or plasma potassium measurement (moles/volume) 3.9 mmol/L 3.6-5.0 Serum or plasma chloride measurement (moles/volume) 108 mmol /L 98-107 Carbon dioxide 24 mmol/L 21-32 Serum or plasma anion gap determination (moles/volume) 8 mmol/L 5-14 Serum or plasma urea nitrogen measurement (mass/volume) 22 mg/dL 7-18 Serum or plasma creatinine measurement (mass/volume) 1.28 mg /dL 0.60-1.30 Serum or plasma urea nitrogen/creatinine mass ratio 17 NRG Serum or plasma creatinine measurement with calculation of estimated glomerular filtration rate 54 NRG Serum or plasma glucose measurement (mass/volume) 116 mg/dL 70-105 Serum or plasma calcium measurement (mass/volume) 8.8 mg/dL 8.5-10.1 Serum or plasma total bilirubin measurement (mass/volume) 0.5 mg/dL 0.1-1.0 Serum or plasma alkaline phosphatase measurement (enzymatic activity/volume) 58 U/L 40-136 Serum or plasma aspartate aminotransferase measurement (enzymatic activity/ volume) 13 U/L 5-34 Serum or plasma alanine aminotransferase measurement (enzymatic activity/volume ) 12 U/L 0-55 Serum or plasma protein measurement (mass/volume) 6.0 g/dL 6.4-8.2 Serum or plasma albumin measurement (mass/volume) 3.5 g/dL 3.2-4.5 Complete blood count (CBC) with automated white blood cell (WBC) differential - 06/22/16 15:26 Blood leukocytes automated count (number/volume) 6.8 10*3/ uL 4.3-11.0 Blood erythrocytes automated count (number/volume) 4.38 10*6 /uL 4.35-5.85 Venous blood hemoglobin measurement (mass/volume) 13.5 g/dL 13.3-17.7 Blood hematocrit (volume fraction) 40 % 40-54 Automated erythrocyte mean corpuscular volume 91 [foz_us] 80-99 Automated erythrocyte mean corpuscular hemoglobin (mass per erythrocyte) 31 pg 25-34 Automated erythrocyte mean corpuscular hemoglobin concentration measurement ( mass/volume) 34 g/dL 32-36 Automated erythrocyte distribution width ratio 13.8 % 10.0-14.5 Automated blood platelet count (count/volume) 161 10*3/uL 130-400 Automated blood platelet mean volume measurement 11.5 [foz_ us] 7.4-10.4 Automated blood neutrophils/100 leukocytes 68 % 42-75 Automated blood lymphocytes/100 leukocytes 17 % 12-44 Blood monocytes/100 leukocytes 11 % 0-12 Automated blood eosinophils/100 leukocytes 4 % 0-10 Automated blood basophils/100 leukocytes 1 % 0-10 Blood neutrophils automated count (number/volume) 4.6 10*3 1.8-7.8 Blood lymphocytes automated count (number/volume) 1.2 10*3 1.0-4.0 Blood monocytes automated count (number/volume) 0.7 10*3 0.0-1.0 Automated eosinophil count 0.3 10*3/uL 0.0-0.3 Automated blood basophil count (count/volume) 0.0 10*3/uL 0.0-0.1 Comprehensive metabolic panel - 06/22/16 15:26 Serum or plasma sodium measurement (moles/volume) 137 mmol/ L 135-145 Serum or plasma potassium measurement (moles/volume) 3.9 mmol/L 3.6-5.0 Serum or plasma chloride measurement (moles/volume) 103 mmol /L 98-107 Carbon dioxide 25 mmol/L 21-32 Serum or plasma anion gap determination (moles/volume) 9 mmol/L 5-14 Serum or plasma urea nitrogen measurement (mass/volume) 21 mg/dL 7-18 Serum or plasma creatinine measurement (mass/volume) 1.19 mg /dL 0.60-1.30 Serum or plasma urea nitrogen/creatinine mass ratio 18 NRG Serum or plasma creatinine measurement with calculation of estimated glomerular filtration rate 59 NRG Serum or plasma glucose measurement (mass/volume) 39 mg/dL 70-105 Serum or plasma calcium measurement (mass/volume) 8.9 mg/dL 8.5-10.1 Serum or plasma total bilirubin measurement (mass/volume) 0.4 mg/dL 0.1-1.0 Serum or plasma alkaline phosphatase measurement (enzymatic activity/volume) 64 U/L 40-136 Serum or plasma aspartate aminotransferase measurement (enzymatic activity/ volume) 17 U/L 5-34 Serum or plasma alanine aminotransferase measurement (enzymatic activity/volume ) 16 U/L 0-55 Serum or plasma protein measurement (mass/volume) 6.1 g/dL 6.4-8.2 Serum or plasma albumin measurement (mass/volume) 3.5 g/dL 3.2-4.5 Complete urinalysis with reflex to culture - 06/23/16 04:00 Urine color determination YELLOW NRG Urine clarity determination CLEAR NRG Urine pH measurement by test strip 6.5 5 -9 Specific gravity of urine by test strip 1.015 1.016-1.022 Urine protein assay by test strip, semi-quantitative NEGATIVE NEGATIVE Urine glucose detection by automated test strip NEGATIVE NEGATIVE Erythrocytes detection in urine sediment by light microscopy NEGATIVE NEGATIVE Urine ketones detection by automated test strip NEGATIVE NEGATIVE Urine nitrite detection by test strip NEGATIVE NEGATIVE Urine total bilirubin detection by test strip NEGATIVE NEGATIVE Urine urobilinogen measurement by automated test strip (mass/volume) NORMAL NORMAL Urine leukocyte esterase detection by dipstick NEGATIVE NEGATIVE Automated urine sediment erythrocyte count by microscopy (number/high power field) RARE NRG Automated urine sediment leukocyte count by microscopy (number/high power field ) NONE NRG Bacteria detection in urine sediment by light microscopy NEGATIVE NRG Squamous epithelial cells detection in urine sediment by light microscopy RARE NRG Crystals detection in urine sediment by light microscopy NONE NRG Casts detection in urine sediment by light microscopy PRESENT NRG Mucus detection in urine sediment by light microscopy NEGATIVE NRG Complete urinalysis with reflex to culture NO NRG Hyaline casts detection in urine sediment by light microscopy 2-5 NRG Complete urinalysis with reflex to culture - 06/23/16 04:00 Urine color determination YELLOW NRG Urine clarity determination CLEAR NRG Urine pH measurement by test strip 6.5 5 -9 Specific gravity of urine by test strip 1.015 1.016-1.022 Urine protein assay by test strip, semi-quantitative NEGATIVE NEGATIVE Urine glucose detection by automated test strip NEGATIVE NEGATIVE Erythrocytes detection in urine sediment by light microscopy NEGATIVE NEGATIVE Urine ketones detection by automated test strip NEGATIVE NEGATIVE Urine nitrite detection by test strip NEGATIVE NEGATIVE Urine total bilirubin detection by test strip NEGATIVE NEGATIVE Urine urobilinogen measurement by automated test strip (mass/volume) NORMAL NORMAL Urine leukocyte esterase detection by dipstick NEGATIVE NEGATIVE Automated urine sediment erythrocyte count by microscopy (number/high power field) RARE NRG Automated urine sediment leukocyte count by microscopy (number/high power field ) NONE NRG Bacteria detection in urine sediment by light microscopy NEGATIVE NRG Squamous epithelial cells detection in urine sediment by light microscopy RARE NRG Crystals detection in urine sediment by light microscopy NONE NRG Casts detection in urine sediment by light microscopy PRESENT NRG Mucus detection in urine sediment by light microscopy NEGATIVE NRG Complete urinalysis with reflex to culture NO NRG Hyaline casts detection in urine sediment by light microscopy 2-5 NRG Complete blood count (CBC) with automated white blood cell (WBC) differential - 06/29/16 13:30 Blood leukocytes automated count (number/volume) 5.9 10*3/ uL 4.3-11.0 Blood erythrocytes automated count (number/volume) 4.28 10*6 /uL 4.35-5.85 Venous blood hemoglobin measurement (mass/volume) 13.1 g/dL 13.3-17.7 Blood hematocrit (volume fraction) 39 % 40-54 Automated erythrocyte mean corpuscular volume 91 [foz_us] 80-99 Automated erythrocyte mean corpuscular hemoglobin (mass per erythrocyte) 31 pg 25-34 Automated erythrocyte mean corpuscular hemoglobin concentration measurement ( mass/volume) 34 g/dL 32-36 Automated erythrocyte distribution width ratio 14.1 % 10.0-14.5 Automated blood platelet count (count/volume) 155 10*3/uL 130-400 Automated blood platelet mean volume measurement 11.5 [foz_ us] 7.4-10.4 Automated blood neutrophils/100 leukocytes 73 % 42-75 Automated blood lymphocytes/100 leukocytes 16 % 12-44 Blood monocytes/100 leukocytes 6 % 0-12 Automated blood eosinophils/100 leukocytes 4 % 0-10 Automated blood basophils/100 leukocytes 1 % 0-10 Blood neutrophils automated count (number/volume) 4.3 10*3 1.8-7.8 Blood lymphocytes automated count (number/volume) 1.0 10*3 1.0-4.0 Blood monocytes automated count (number/volume) 0.4 10*3 0.0-1.0 Automated eosinophil count 0.3 10*3/uL 0.0-0.3 Automated blood basophil count (count/volume) 0.0 10*3/uL 0.0-0.1 Comprehensive metabolic panel - 06/29/16 13:30 Serum or plasma sodium measurement (moles/volume) 139 mmol/ L 135-145 Serum or plasma potassium measurement (moles/volume) 3.7 mmol/L 3.6-5.0 Serum or plasma chloride measurement (moles/volume) 105 mmol /L 98-107 Carbon dioxide 25 mmol/L 21-32 Serum or plasma anion gap determination (moles/volume) 9 mmol/L 5-14 Serum or plasma urea nitrogen measurement (mass/volume) 25 mg/dL 7-18 Serum or plasma creatinine measurement (mass/volume) 1.24 mg /dL 0.60-1.30 Serum or plasma urea nitrogen/creatinine mass ratio 20 NRG Serum or plasma creatinine measurement with calculation of estimated glomerular filtration rate 56 NRG Serum or plasma glucose measurement (mass/volume) 120 mg/dL 70-105 Serum or plasma calcium measurement (mass/volume) 8.8 mg/dL 8.5-10.1 Serum or plasma total bilirubin measurement (mass/volume) 0.4 mg/dL 0.1-1.0 Serum or plasma alkaline phosphatase measurement (enzymatic activity/volume) 61 U/L 40-136 Serum or plasma aspartate aminotransferase measurement (enzymatic activity/ volume) 18 U/L 5-34 Serum or plasma alanine aminotransferase measurement (enzymatic activity/volume ) 17 U/L 0-55 Serum or plasma protein measurement (mass/volume) 6.2 g/dL 6.4-8.2 Serum or plasma albumin measurement (mass/volume) 3.6 g/dL 3.2-4.5 Complete urinalysis with reflex to culture - 07/06/16 10:00 Urine color determination YELLOW NRG Urine clarity determination CLEAR NRG Urine pH measurement by test strip 5 5- 9 Specific gravity of urine by test strip 1.025 1.016-1.022 Urine protein assay by test strip, semi-quantitative 1+ NEGATIVE Urine glucose detection by automated test strip NEGATIVE NEGATIVE Erythrocytes detection in urine sediment by light microscopy 1+ NEGATIVE Urine ketones detection by automated test strip NEGATIVE NEGATIVE Urine nitrite detection by test strip NEGATIVE NEGATIVE Urine total bilirubin detection by test strip NEGATIVE NEGATIVE Urine urobilinogen measurement by automated test strip (mass/volume) NORMAL NORMAL Urine leukocyte esterase detection by dipstick 1+ NEGATIVE Automated urine sediment erythrocyte count by microscopy (number/high power field) RARE NRG Automated urine sediment leukocyte count by microscopy (number/high power field ) RARE NRG Bacteria detection in urine sediment by light microscopy NEGATIVE NRG Squamous epithelial cells detection in urine sediment by light microscopy NONE NRG Crystals detection in urine sediment by light microscopy NONE NRG Casts detection in urine sediment by light microscopy NONE NRG Mucus detection in urine sediment by light microscopy NEGATIVE NRG Complete urinalysis with reflex to culture NO NRG Complete blood count (CBC) with automated white blood cell (WBC) differential - 07/06/16 13:15 Blood leukocytes automated count (number/volume) 6.0 10*3/ uL 4.3-11.0 Blood erythrocytes automated count (number/volume) 4.29 10*6 /uL 4.35-5.85 Venous blood hemoglobin measurement (mass/volume) 13.3 g/dL 13.3-17.7 Blood hematocrit (volume fraction) 39 % 40-54 Automated erythrocyte mean corpuscular volume 90 [foz_us] 80-99 Automated erythrocyte mean corpuscular hemoglobin (mass per erythrocyte) 31 pg 25-34 Automated erythrocyte mean corpuscular hemoglobin concentration measurement ( mass/volume) 34 g/dL 32-36 Automated erythrocyte distribution width ratio 14.2 % 10.0-14.5 Automated blood platelet count (count/volume) 162 10*3/uL 130-400 Automated blood platelet mean volume measurement 11.1 [foz_ us] 7.4-10.4 Automated blood neutrophils/100 leukocytes 71 % 42-75 Automated blood lymphocytes/100 leukocytes 16 % 12-44 Blood monocytes/100 leukocytes 8 % 0-12 Automated blood eosinophils/100 leukocytes 4 % 0-10 Automated blood basophils/100 leukocytes 1 % 0-10 Blood neutrophils automated count (number/volume) 4.2 10*3 1.8-7.8 Blood lymphocytes automated count (number/volume) 1.0 10*3 1.0-4.0 Blood monocytes automated count (number/volume) 0.5 10*3 0.0-1.0 Automated eosinophil count 0.2 10*3/uL 0.0-0.3 Automated blood basophil count (count/volume) 0.0 10*3/uL 0.0-0.1 Comprehensive metabolic panel - 07/06/16 13:15 Serum or plasma sodium measurement (moles/volume) 140 mmol/ L 135-145 Serum or plasma potassium measurement (moles/volume) 4.2 mmol/L 3.6-5.0 Serum or plasma chloride measurement (moles/volume) 106 mmol /L 98-107 Carbon dioxide 26 mmol/L 21-32 Serum or plasma anion gap determination (moles/volume) 8 mmol/L 5-14 Serum or plasma urea nitrogen measurement (mass/volume) 21 mg/dL 7-18 Serum or plasma creatinine measurement (mass/volume) 1.19 mg /dL 0.60-1.30 Serum or plasma urea nitrogen/creatinine mass ratio 18 NRG Serum or plasma creatinine measurement with calculation of estimated glomerular filtration rate 59 NRG Serum or plasma glucose measurement (mass/volume) 95 mg/dL 70-105 Serum or plasma calcium measurement (mass/volume) 8.9 mg/dL 8.5-10.1 Serum or plasma total bilirubin measurement (mass/volume) 0.5 mg/dL 0.1-1.0 Serum or plasma alkaline phosphatase measurement (enzymatic activity/volume) 64 U/L 40-136 Serum or plasma aspartate aminotransferase measurement (enzymatic activity/ volume) 15 U/L 5-34 Serum or plasma alanine aminotransferase measurement (enzymatic activity/volume ) 17 U/L 0-55 Serum or plasma protein measurement (mass/volume) 6.5 g/dL 6.4-8.2 Serum or plasma albumin measurement (mass/volume) 3.6 g/dL 3.2-4.5 Automated blood complete blood count (hemogram) panel - 08/14/16 11:00 Blood leukocytes automated count (number/volume) 7.6 10*3/ uL 4.3-11.0 Blood erythrocytes automated count (number/volume) 4.68 10*6 /uL 4.35-5.85 Venous blood hemoglobin measurement (mass/volume) 14.6 g/dL 13.3-17.7 Blood hematocrit (volume fraction) 42 % 40-54 Automated erythrocyte mean corpuscular volume 90 [foz_us] 80-99 Automated erythrocyte mean corpuscular hemoglobin (mass per erythrocyte) 31 pg 25-34 Automated erythrocyte mean corpuscular hemoglobin concentration measurement ( mass/volume) 35 g/dL 32-36 Automated erythrocyte distribution width ratio 14.6 % 10.0-14.5 Automated blood platelet count (count/volume) 184 10*3/uL 130-400 Automated blood platelet mean volume measurement 10.5 [foz_ us] 7.4-10.4 Complete urinalysis with reflex to culture - 08/14/16 11:00 Urine color determination YELLOW NRG Urine clarity determination CLEAR NRG Urine pH measurement by test strip 6 5- 9 Specific gravity of urine by test strip 1.020 1.016-1.022 Urine protein assay by test strip, semi-quantitative 1+ NEGATIVE Urine glucose detection by automated test strip NEGATIVE NEGATIVE Erythrocytes detection in urine sediment by light microscopy 1+ NEGATIVE Urine ketones detection by automated test strip 1+ NEGATIVE Urine nitrite detection by test strip POSITIVE NEGATIVE Urine total bilirubin detection by test strip NEGATIVE NEGATIVE Urine urobilinogen measurement by automated test strip (mass/volume) NORMAL NORMAL Urine leukocyte esterase detection by dipstick 1+ NEGATIVE Automated urine sediment erythrocyte count by microscopy (number/high power field) [HPF] NRG Automated urine sediment leukocyte count by microscopy (number/high power field ) [HPF] NRG Bacteria detection in urine sediment by light microscopy TRACE NRG Squamous epithelial cells detection in urine sediment by light microscopy RARE NRG Crystals detection in urine sediment by light microscopy NONE NRG Casts detection in urine sediment by light microscopy NONE NRG Mucus detection in urine sediment by light microscopy NEGATIVE NRG Complete urinalysis with reflex to culture YES NRG Comprehensive metabolic panel - 08/14/16 11:00 Serum or plasma sodium measurement (moles/volume) 141 mmol/ L 135-145 Serum or plasma potassium measurement (moles/volume) 4.2 mmol/L 3.6-5.0 Serum or plasma chloride measurement (moles/volume) 108 mmol /L 98-107 Carbon dioxide 23 mmol/L 21-32 Serum or plasma anion gap determination (moles/volume) 10 mmol/L 5-14 Serum or plasma urea nitrogen measurement (mass/volume) 20 mg/dL 7-18 Serum or plasma creatinine measurement (mass/volume) 1.23 mg /dL 0.60-1.30 Serum or plasma urea nitrogen/creatinine mass ratio 16 NRG Serum or plasma creatinine measurement with calculation of estimated glomerular filtration rate 57 NRG Serum or plasma glucose measurement (mass/volume) 107 mg/dL 70-105 Serum or plasma calcium measurement (mass/volume) 9.1 mg/dL 8.5-10.1 Serum or plasma total bilirubin measurement (mass/volume) 0.6 mg/dL 0.1-1.0 Serum or plasma alkaline phosphatase measurement (enzymatic activity/volume) 42 U/L 40-136 Serum or plasma aspartate aminotransferase measurement (enzymatic activity/ volume) 27 U/L 5-34 Serum or plasma alanine aminotransferase measurement (enzymatic activity/volume ) 23 U/L 0-55 Serum or plasma protein measurement (mass/volume) 6.4 g/dL 6.4-8.2 Serum or plasma albumin measurement (mass/volume) 3.5 g/dL 3.2-4.5 Bacterial urine culture - 08/14/16 11:00 Bacterial urine culture FOOTNOTE NRG Encounters ACCT No. Visit Date/Time Discharge Status Pt. Type Provider Facility Loc./Unit Complaint [id number] 08/28/2016 09:33:00 2016 11:00:00 DIS Emergency CYNTHIA GONZALES, DELILAH Lucero [facility] ER FELL AND HIT HIS HEAD [id number] 08/14/2016 14:02:00 2016 16:10:00 DIS Outpatient JOSÉ HURLEY MD [facility] 4TH ALS/DEHYDRATION- UTI [id number] 01/16/2014 06:35:00 2013 10:55:00 DIS Outpatient DENNIS SUAREZ MD [facility] BLADDER CANCER [id number] 01/12/2014 13:14:00 2013 23:59:59 CLS Outpatient DENNIS SUAREZ MD [facility] PREOP BLADDER CANCER [id number] 11/06/2013 09:47:00 2013 23:59:59 CLS Outpatient JOSÉ HURLEY MD [facility] RAD HC CVA,JANINA EQUILIBRUIM [id number] 08/21/2013 14:57:00 2013 23:59:59 CLS Outpatient EMMANUELLE DUBOSE APRN [facility] RAD KNEE PAIN [id number] 07/06/2016 14:02:00 ACT Outpatient NICA SANZ DO [facility] [id number] 07/06/2016 10:00:00 ACT Outpatient NICA SANZ DO [facility] NEURO BARRELIA ALS [id number] 06/29/2016 13:30:00 ACT Outpatient NICA SANZ DO [facility] NEURO BARRELIA ALS [id number] 06/23/2016 04:00:00 ACT Outpatient NICA SANZ DO [facility] NEURO BARRELIA ALS [id number] 06/22/2016 14:30:00 ACT Outpatient NICA SANZ DO [facility] NEURO BARRELIA ALS [id number] 06/16/2016 13:09:00 ACT Outpatient NICA SANZ DO [facility] [id number] 06/10/2016 09:48:00 ACT Outpatient LIBRA SANZ [facility] NEURO BORRELIA [id number] 01/23/2012 14:36:00 Document Registration [id number] 01/20/2012 09:41:00 Document Registration [id number] 08/20/2011 10:31:00 Document Registration [id number] 08/11/2011 16:38:00 Document Registration
--- OUTSIDE RECORDS SUMMARY | 2016-09-20 08:02 | XMS REPORT | Continuity of Care Document ---
Author Author [facility] Organization [facility] Address Unknown Phone Unavailable Care Team Providers Care Crime Investigator Special Agent Name Role Phone Sintia Armaan Banerjee PCP [phone] Source Comments Some departments are not documenting in the electronic medical record. If you do not see the information that you expected, contact Release of Information in the Health Information Management department at [phone] for further assistance in locating additional records.[facility] Active Allergies and Adverse Reactions No [...] Take 250 mg by mouth Active daily. P-Iclvkntrcims-L09-Acetyl Take by mouth daily. Active cyst 600-2-6 mg tab Active Problems Problem Noted Date Falls frequently [...] including referral to a psychologist or social service assistant for counseling and initiating treatment with an [...] Aricept and Exelon. 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 Most Recent Encounters Date Type Specialty [...] Taken Blood Pressure 111/65 07/21/2016 12:34 PM EMERGENCY DEPT TECH Pulse 72 07/21/2016 12:34 PM EMERGENCY DEPT TECH Temperature - - Respiratory Rate - - Height 1.66 m (5' 5.35") 07/21/2016 12:34 PM EMERGENCY DEPT TECH Weight 75 kg (165 lb 5.5 oz) 07/21/2016 12:34 PM EMERGENCY DEPT TECH Body Mass Index 27.22 07/21/2016 12:34 PM EMERGENCY DEPT TECH Oxygen Saturation - - Plan of Care Health Maintenance Due Date Last Done Comments Physical (Comprehensive) 09/26/1942 Exam Pertussis Vaccine 09/26/1947 Tetanus Vaccine 1953 Shingles Vaccine 1996 Prevnar/Pneumovax (#1) 2001 Influenza Vaccine 01/29/2017 Results from Last 3 Months Not on file
== END 2016-08-28 11:00 | disposition home or self-care (01) ==
LOC: EDUNIT# 09:30 → ER 09:33
DX: S00.83XA Contusion of other part of head, initial encounter (principal); M47.812 Spondylosis without myelopathy or radiculopathy, cervical region; F03.90 Unspecified dementia, unspecified severity, without behavioral disturbance, psychotic disturbance, mood disturbance, and anxiety; G12.21 Amyotrophic lateral sclerosis; Z79.82 Long term (current) use of aspirin; Z79.899 Other long term (current) drug therapy; W05.0XXA Fall from non-moving wheelchair, initial encounter; Y92.009 Unspecified place in unspecified non-institutional (private) residence as the place of occurrence of the external cause; Y99.8 Other external cause status
CPT/HCPCS: 70450; 72125; 99282

== ENCOUNTER 2016-10-04 18:53 | Emergency (ER) | payer MEDICARE, OTHER ==
[~2016-10-04] VITALS: Ht 182.9 cm; Wt 63.5 kg
[2016-10-04] MEDS: oxyCODONE 20 MG/1 ML ORAL CONC (RoxiCODONE) CHARGE PER 1 ML PO PRN ×2 (19:45→20:50)
--- NOTE | 2016-10-04 19:48 | ED General ---
General Chief Complaint: General Problems/Pain Stated Complaint: GENERAL CONCERNS Nursing Triage Note: PT HERE VIA EMS. PTS STATES THAT HE HAS STOPPED DRINKING TODAY AND HE IS MORE LETHARGIC TODAY. PT IS ON HOSPICE. Nursing Sepsis Screen: No Definite Risk Source of Information: Patient Exam Limitations: No Limitations History of Present Illness Time Seen by Provider: 19:08 Initial Comments here by EMS with report of declined while on hospice. Patient has ALS and has had rapid decline over the last week. He is at homeon hospice. Per conversation with the and the hospice care team, it does appear that the patient is becoming too difficult to care for at home but he does have placement ability at the retirement. The was trying to help him stay home but she is unable to continue care for him under his current circumstances. She was like to pursue placement if possible and assistance with needs.patient has had decreased appetite and has decreased by mouth intake of fluids as well. No obvious distress except for moving legs and he appears to be uncomfortable with respect to his legs. Timing/Duration: 1 Week, Getting Worse Severity: Severe Associated Systoms: Other (decline in mentation secondary to ALS) Allergies and Home Medications Allergies Coded Allergies: No Known Drug Allergies (Unverified , 08/14/16) Home Medications Acetaminophen 500 Mg Tablet, 500-1,000 MG PO Q6H PRN for PAIN, (Reported) Allopurinol 100 Mg Tab, 100 MG PO DAILY, (Reported) Amlodipine Besylate 10 Mg Tablet, 10 MG PO DAILY, (Reported) Aspirin 325 Mg Tablet, 325 MG PO DAILY, (Reported) Cholecalciferol (Vitamin D3) 50,000 Unit Capsule, 50,000 UNIT PO Mo, (Reported) Docusate Sodium 100 Mg Capsule, 100 MG PO HS, (Reported) Haloperidol 1 Mg Tablet, 1 MG PO HS PRN for aggressive behavior, #20 Prescribed by: DELILAH MARIE on 08/18/16 1117 Hydroxychloroquine Sulfate 200 Mg Tablet, 200 MG PO DAILY, (Reported) Ibuprofen 200 Mg Tablet, 200 MG PO Q6H PRN for PAIN, (Reported) L.acidoph & Paracasei,B.lactis 1 Each Capsule, 1 CAP PO DAILY PRN for DIGESTIVE HEALTH, (Reported) Levomefolate/B6/B12/Algal Oil 1 Each Capsule, 1 CAP PO BID, (Reported) Magnesium Hydroxide 400 Mg/5 Ml Oral.susp, 30 ML PO DAILY PRN for CONSTIPATION, (Reported) Polyethylene Glycol 3350 17 Gm Powd.pack, 17 GM PO DAILY PRN for CONSTIPATION, ( Reported) Terazosin Hcl 5 Mg Capsule, 5 MG PO DAILY, (Reported) Tolterodine Tartrate 4 Mg Cap.er.24h, 4 MG PO 1800, (Reported) Constitutional: see HPI, No chills, No fever Respiratory: no symptoms reported Gastrointestinal: no symptoms reported Musculoskeletal: see HPI, muscle pain Other unable to complete review of systems due to altered mental status. Past Jezxdfn-Imiuva-Pfzfjg Hx Patient Social History Alcohol Use: Denies Use Recreational Drug Use: No Smoking Status: Unknown if Ever Smoked Type Used: Cigarettes Recent Foreign Travel: No Contact w/Someone Who Travel: No Recent Infectious Disease Expo: No Recent Hopitalizations: No Immunizations Up To Date Date of Pneumonia Vaccine: May 31, 2014 Date of Influenza Vaccine: Feb 29, 2016 Seasonal Allergies Seasonal Allergies: No Surgeries HX Surgeries: Yes (EYE SX X6 TOTAL, STONE BASKET, CYSTO, TURP) Respiratory Hx Respiratory Disorders: Yes Respiratory Disorders: Sleep Apnea Cardiovascular Hx Cardiac Disorders: No Neurological Hx Neurological Disorders: Yes (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) Neurological Disorders: ALS/Taylor Gehrig's, Dementia Reproductive System Hx Reproductive Disorders: No Genitourinary Hx Genitourinary Disorders: Yes (BLADDER CA) Genitourinary Disorders: Kidney Stones Gastrointestinal Hx Gastrointestinal Disorders: No Musculoskeletal Hx Musculoskeletal Disorders: Yes (ARTHRITIS) Musculoskeletal Disorders: Arthritis Endocrine Hx Endocrine Disorders: No HEENT HX ENT Disorders: No HEENT Disorders: Cataract Cancer Hx Cancer: Yes Cancer: Bladder Psychosocial Hx Psychiatric Problems: Yes Behavioral Health Disorders: Depression Integumentary HX Skin/Integumentary Disorder: No Blood Transfusions Hx Blood Disorders: No Reviewed Nursing Assessment Reviewed/Agree w Nursing PMH: Yes Family Medical History Family Medial History: Arthritis 19 MOTHER Gastroenteritis SON Neoplasm SON Osteoporosis 19 MOTHER Parkinson's disease G8 SISTER Psychosocial problem SON Physical Exam Vital Signs Vital Sign - Last 12Hours 10/04/16 18:59 Temp 98.8 Pulse 67 Resp 18 B/P (MAP) 145/77 Pulse Ox 97 O2 Delivery Room Air Capillary Refill : Less Than 3 Seconds General Appearance: Cachetic, Mild Distress (occasionally kicks legs or move legs in an apparent discomfort), Thin Neck: Normal Inspection, Non Tender Respiratory: No Accessory Muscle Use, Crackles (bilateral bases) Cardiovascular: Regular Rate, Rhythm, No Murmur Gastrointestinal: Non Tender, Soft Back: Normal Inspection, No CVA Tenderness, No Vertebral Tenderness Extremity: No Calf Tenderness, No Pedal Edema Neurologic/Psychiatric: Disoriented x3, Motor Weakness (global), Other (does answer simple questions and appears to be very drowsy but not uncomfortable except for occasionally moving legs) Skin: Normal Color, Warm/Dry Progress/Results/Core Measures Results/Orders My Orders Orders - JONATHAN FABIAN MD Oxycodone Oral Concentrate (Roxicodone O (10/04/16 19:45) Vital Signs/I&O Vital Sign - Last 12Hours 10/04/16 18:59 Temp 98.8 Pulse 67 Resp 18 B/P (MAP) 145/77 Pulse Ox 97 O2 Delivery Room Air Blood Pressure Mean: 99 Progress Note : Progress Note seen and evaluated. I did have a long conversation with the patient's and hospice care nurse as well as WEN Fitzgerald, who is patient's provider in the outpatient setting. We did discuss patient needs as well as family needs in the setting of a hospice patient. Ultimately, pulse were set to improve patient care capabilities by placement in the retirement. The hospice nurse has established that [facility] will take the patient tonight. We will be available to get orders for patient's comfort care needs. Patient will need to be transported by EMS due to inability to sit up without significant discomfort and oxygen requirements. patient is bedbound. Departure Impression Impression: Primary Impression: ALS (amyotrophic lateral sclerosis) Disposition: 01 HOME, SELF-CARE Condition: Stable/Unchanged Departure-Patient Inst. Decision time for Depature: 19:51 Referrals: JOSÉ HRULEY MD (PCP/Family) Primary Care Physician Patient Instructions: General (DC) Add. Discharge Instructions: All discharge instructions reviewed with patient and/or family. Voiced understanding. retirement placement tonight at [facility]. Further orders per hospice care team. JONATHAN FABIAN MD October 04, 2016 19:48
[2016-10-04] MEDS ORDERED: LORazepam INJ 2 MG/ML (ATIVAN) VIAL IM ONE (20:30)
[2016-10-04] MEDS ORDERED: LORazepam INJ 2 MG/ML (ATIVAN) VIAL IVP ONE (20:30)
[2016-10-04] MEDS ORDERED: morphine (ROXINOL) 10 MG/0.5 ML oral conc 0.5 ML PO PRN (20:30)
[2016-10-04 20:51] VITALS: BP 145/77
== END 2016-10-04 20:51 | disposition home or self-care (01) ==
LOC: EDUNIT# 18:53 → ER 18:54
DX: G12.21 Amyotrophic lateral sclerosis (principal); Z79.82 Long term (current) use of aspirin; Z79.899 Other long term (current) drug therapy
CPT/HCPCS: 96372; 99283